=== PATIENT | female | born 2000 | race Caucasian/White ===

== ENCOUNTER 2022-04-05 11:45 | Emergency (ER) | payer BC, SELFPAY ==
[2022-04-05 11:57] VITALS: BP 147/84; PULSE 90; RESP 16; TEMP 36.8; O2SAT 98
--- NOTE | 2022-04-05 12:18 | ED.URI ---
HPI - URI/Sore Throat General Chief Complaint: Upper Respiratory Infection Stated Complaint: Sore Throat/Ear Pain Time Seen by Provider: 04/05/22 12:19 History of Present Illness HPI Narrative: patient presents with right ear pain and nasal congestion no fever no releif with sudafed and flonase Related Data Home Medications Medication Instructions Recorded Confirmed cetirizine 5 mg tablet 5 mg DAILY 04/05/22 04/05/22 norgestimate-ethinyl estradiol 1 tablet DAILY 04/05/22 04/05/22 0.18 mg/0.215mg/0.25mg-35 mcg(28)tablet Allergies Allergy/AdvReac Type Severity Reaction Status Date / Time egg Allergy Swelling Verified 04/05/22 12:02 of Lip/Tongue/Throat nut - unspecified Allergy Swelling Verified 04/05/22 12:02 of Lip/Tongue/Throat peanut Allergy Swelling Verified 04/05/22 12:02 of Lip/Tongue/Throat Review of Systems Review of Systems: CONSTITUTIONAL: Denies chills, or sweats. Reports fever and generalized body aches EYES: Denies visual changes, redness, or discharge. ENT: Denies otalgia. Reports nasal congestion runny nose and sore throat CARDIOVASCULAR: Denies chest pain, palpitations, or edema. RESPIRATORY: Denies dyspnea. Reports occasional cough GASTROINTESTINAL: Denies abdominal pain, nausea, vomiting, or diarrhea. GENITOURINARY: Denies dysuria or hematuria. SKIN: Denies rash or itching. MUSCULOSKELETAL: Denies back pain, joint pain, or myalgia. Reports generalized body aches NEUROLOGIC: Denies headache, numbness, or weakness. PSYCHIATRIC: Denies anxiety or depression. [facility] Surgical History Surgical History (Updated 02/27/22 @ 14:35 by LATOYA Sampson) Hx of oral surgery as child Family History Family History (Updated 02/27/22 @ 14:37 by LATOYA Sampson) Grandparent H/O ovarian cancer maternal grandmother Cerebrovascular accident paternal grandfather Diabetes mellitus paternal grandmother Sibling Asthma brother Social History Social History (Updated 02/27/22 @ 14:38 by LATOYA Sampson) Smoking status: Never smoker Alcohol intake: current Alcohol use details: 4 per month Substance use: never Substance use type: does not use Additional living arrangements comments: Engaged Gender identity (if verbalized by the patient): Female Sexual Orientation (if Verbalized by the Patient): Straight or Heterosexual Comments At time of signature, agree with nursing past medical, surgical, social and family history. There is no relevant family history pertinent to the presenting complaint Exam Narrative: The patient is a well-developed, well-nourished in no acute distress. SKIN: Skin is warm and dry without erythema, swelling or exudate. There is good turgor. No tenting. HEAD: Atraumatic. Normocephalic. No temporal or scalp tenderness. EYES: Moist and bright. Sclera and conjunctivae normal. No discharge. PERRLA. Extraocular motions intact. Gross visual acuity intact. EARS: Pinna is normal shape and contour. Clear external auditory canals. left TM pearly owens with good cone of light, no erythema or suppuration. Right TM opaque with moderate erythema to the canal Bilateral cerumen noted no gross hearing deficit. NOSE: pink, moist mucosa with good air movement. Clear rhinorrhea without nasal flaring. Septum midline. Mouth: moist mucous membranes. THROAT; mild erythema noted to posterior oropharynx with moderate postnasal drainage. Without exudate or ulceration.. Uvula midline. Normal movement of soft palate. NECK: Supple and nontender with full range of motion without discomfort. No meningeal signs. LUNGS: Equal and bilateral breath sounds without wheezes, rales or rhonchi. CHEST: The chest wall is without retractions or use of accessory muscles. HEART: Has a regular rate and rhythm without murmur, gallops, click or rub. ABDOMEN: Soft, nontender with positive active bowel sounds. No rebound tenderness
== END 2022-04-05 12:31 | disposition home or self-care (01) ==
PROVIDERS: Emergency Provider Nurse Practitioner Family
DX: J06.9 Acute upper respiratory infection, unspecified (principal); H66.90 Otitis media, unspecified, unspecified ear
CPT/HCPCS: 87804; 99213; G0463

== ENCOUNTER 2022-04-09 12:09 | Emergency (ER) | payer BC, SELFPAY ==
[2022-04-09 12:21] VITALS: BP 153/78; PULSE 88; RESP 16; TEMP 36.3; O2SAT 99
--- NOTE | 2022-04-09 14:51 | ED.EAR ---
HPI - Ear Problem General Chief complaint: Ear Stated complaint: Ear Problem Time Seen by Provider: 04/09/22 14:44 Source: patient, RN notes reviewed and old records reviewed Mode of arrival: ambulatory Limitations: no limitations History of Present Illness HPI Narrative: 21 year old female who presents to [facility] care with complaints of ear pain, started on Augmentin on the for bilateral ear infection does not feel she is any better. Patient reports that she continues to have bilateral ear pain which increases when she lays down, patient is also taking Sudafed for her nasal drainage. Patient denies any fevers, chills or sweats. Patient has had COVID vaccinations but has not had flu shot. MD Complaint: ear pain Location: bilateral Severity: severe Exacerbating factors: position of head (lying supine) Discharge from ear: Reports no Treatment prior to arrival: other (on antibiotic and taking Sudafed) Related Data Home Medications Medication Instructions Recorded Confirmed norgestimate-ethinyl estradiol 1 tablet DAILY 04/05/22 04/09/22 0.18 mg/0.215mg/0.25mg-35 mcg(28)tablet Allergies Allergy/AdvReac Type Severity Reaction Status Date / Time egg Allergy Swelling Verified 04/09/22 12:28 of Lip/Tongue/Throat nut - unspecified Allergy Swelling Verified 04/09/22 12:28 of Lip/Tongue/Throat peanut Allergy Swelling Verified 04/09/22 12:28 of Lip/Tongue/Throat Review of Systems Review of Systems: CONSTITUTIONAL: Denies malaise, chills, sweats, or fever. EYES: Denies visual changes, redness, or discharge. ENT: Reports rhinorrhea, congestion,no sinus pain, positive for bilateral otalgia denies sore throat. CARDIOVASCULAR: Denies chest pain, palpitations, or edema. RESPIRATORY: No reported cough.? Denies dyspnea. GASTROINTESTINAL: Denies abdominal pain, nausea, vomiting, diarrhea SKIN: Denies rash or itching. MUSCULOSKELETAL: Denies myalgia. NEUROLOGIC: Denies headache. All systems reviewed & are unremarkable except as noted in HPI and below PMFSH Surgical History Surgical History Hx of oral surgery as child Family History Family History Grandparent H/O ovarian cancer maternal grandmother Cerebrovascular accident paternal grandfather Diabetes mellitus paternal grandmother Sibling Asthma brother Social History Social History Smoking status: Never smoker Alcohol intake: current Alcohol use details: 4 per month Substance use: never Substance use type: does not use Additional living arrangements comments: Engaged Gender identity (if verbalized by the patient): Female Sexual Orientation (if Verbalized by the Patient): Straight or Heterosexual Comments At time of signature, agree with nursing past medical, surgical, social and family history. There is no relevant family history pertinent to the presenting complaint Exam Narrative: GENERAL: Well-appearing, well-nourished, and in no acute distress. HEAD: Normocephalic EYES: PERRLA, conjunctivae clear ENT: Nares clear, turbinates edematous and erythematous, clear discharge. Mucous membranes moist. TM pearly steele with mild erythema dull light reflex bilaterally;bilateral redness and irritation to ear canals with some edema, no drainage noted, no tragal tenderness. Oropharynx erythematous without lesions. Tonsils not enlarged and without exudate, no drooling, no hoarseness, no trismus, uvula midline. NECK: Supple. No lymphadenopathy CHEST: Clear to auscultation, breath sounds equal. No wheezing, rhonchi, rales, or stridor. No respiratory distress, speaks in full sentences. HEART: Regular rate and rhythm. No murmur heard. SKIN: Warm, dry, no rash. NEURO: Alert and oriented x3. PSYCH: Normal m
== END 2022-04-09 15:15 | disposition home or self-care (01) ==
PROVIDERS: Emergency Provider Registered Nurse
DX: H60.93 Unspecified otitis externa, bilateral (principal); H66.93 Otitis media, unspecified, bilateral
CPT/HCPCS: 99213; G0463

== ENCOUNTER 2022-06-24 13:53 | Emergency (ER) | payer BC, SELFPAY ==
[2022-06-24 14:02] VITALS: BP 142/88; PULSE 100; RESP 20; TEMP 36.6; O2SAT 100
--- NOTE | 2022-06-24 14:05 | ED.SKABFB ---
HPI - Skin/Abscess/Foreign Bdy General Chief complaint: Skin/Abscess/Foreign Body Stated complaint: Rash Time Seen by Provider: 06/24/22 14:17 Source: patient, RN notes reviewed and old records reviewed Mode of arrival: ambulatory Limitations: no limitations History of Present Illness HPI narrative: 21 year old female who presents to [facility] care with complaints of fine red rash to upper chest,neck and face since Thursday. Patient reports that rash is itchy and it stings, has taken some Benadryl, pepcid and Zyrtec but has not been on routine basis. Patient denies any new soap, foods, lotions, laundry products, denies any new medications. Patient states she stopped her control pills about 2 weeks ago and she called her [employer] and was told they didn't think rash could be from that.Patient reports that she just resigned from her job and her last day is doesn't think it is from stress. 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 MD complaint: rash Onset (ago): day(s) (3 of symptoms) Severity scale (1-10): 2 Treatments prior to arrival: other (Benadryl, Pepcid, and Zyrtec) Related Data Allergies Allergy/AdvReac Type Severity Reaction Status Date / Time egg Allergy Swelling Verified 04/09/22 12:28 of Lip/Tongue/Throat nut - unspecified Allergy Swelling Verified 04/09/22 12:28 of Lip/Tongue/Throat peanut Allergy Swelling Verified 04/09/22 12:28 of Lip/Tongue/Throat Review of Systems Review of Systems: CONSTITUTIONAL: Denies fever, chills, or sweats. EYES: Denies visual changes, redness, or discharge. ENT: Denies rhinorrhea, congestion, sore throat, or otalgia. CARDIOVASCULAR: Denies chest pain, palpitations, or edema. RESPIRATORY: Denies cough or dyspnea. GASTROINTESTINAL: Denies abdominal pain, nausea, vomiting, or diarrhea. GENITOURINARY: Denies dysuria or hematuria. SKIN: Reports rash with itching to upper chest neck and face states stinging sensation also. MUSCULOSKELETAL: Denies back pain, joint pain, or myalgia. NEUROLOGIC: Denies headache, numbness, or weakness. PSYCHIATRIC: Denies anxiety or depression. All systems reviewed & are unremarkable except as noted in HPI and below PMFSH Past Medical History Medical History (Updated 06/25/22 @ 09:50 by Sonia Cantrell NP) Multiple food allergies Surgical History Surgical History Hx of oral surgery as child Family History Family History Grandparent H/O ovarian cancer maternal grandmother Cerebrovascular accident paternal grandfather Diabetes mellitus paternal grandmother Sibling Asthma brother Social History Social History Smoking status: Never smoker Alcohol intake: current Alcohol use details: 4 per month Substance use: never Substance use type: does not use Living arrangements: other Additional living arrangements comments: Engaged Gender identity (if verbalized by the patient): Female Sexual Orientation (if Verbalized by the Patient): Straight or Heterosexual Comments At time of signature, agree with nursing past medical, surgical, social and family history. There is no relevant family history pertinent to the presenting complaint Exam Narrative: GENERAL: Well-appearing, well-nourished, and in no acute distress. HEAD: Normocephalic, atraumatic. EYES: PERRLA and EOMI. ENT: Nares clear, no rhinorrhea or epistaxis. Mucous membranes moist.TM's normal with good light reflex, throat pink with no lesions or swelling, denies any pain or difficulty with swallowing NECK: Supple. no lymphadenopathy CHEST: Clear to auscultation. No respiratory distress.SAO2 100% on room air, denies any dyspnea HEART: Regular rate an
== END 2022-06-24 14:47 | disposition home or self-care (01) ==
PROVIDERS: Emergency Provider Registered Nurse
DX: L25.9 Unspecified contact dermatitis, unspecified cause (principal)
CPT/HCPCS: 99213; G0463

== ENCOUNTER 2022-10-02 11:32 | Outpatient (CLI) | payer BC, SELFPAY ==
[2022-10-02 12:57] LABS: Basophils Absolute Auto 0.1 K/mm3 (0.0-0.1); Basophils Percent Auto 0.5 % (0.2-1.2); Eosinophils Absolute Auto 0.3 K/mm3 (0-0.3); Eosinophils Percent Auto 2.6 % (0-4.4); Hematocrit 41.7 % (37.0-47.0); Hemoglobin 13.8 g/dL (12.0-15.0); Immature Granulocyte Absolute 0.05 K/mm3 (0.00-0.031); Immature Granulocyte Percent A 0.5 % (0-0.5); Lymphocytes Absolute Auto 2.11 K/mm3 (0.9-3.2); Lymphocytes Percent Auto 19.9 % (18.3-44.2); Mean Corpuscular HGB Conc 33.1 g/dl (32-36); Mean Corpuscular Hemoglobin 28.8 pg (26-34); Mean Corpuscular Volume 86.9 fl (80-100); Monocytes Absolute Auto 1.1 K/mm3 (0.1-0.6); Monocytes Percent Auto 10.3 % (2.6-8.5); Neutrophils Percent Auto 66.2 % (45.5-73.1); Platelet Count Result 273 k/mm3 (150-375); Red Cell Distribution Width 13.2 % (11.5-14.5); White Blood Count 10.6 K/mm3 (4.5-10.0)
[2022-10-02 13:06] LABS: Glucose 1 Hour PP 50gm Dose 92 mg/dL
[2022-10-02 13:42] LABS: Hepatitis B Surface Antigen Negative (Negative); Rubella IgG Antibody 37.1 IU/ML
[2022-10-02 13:48] LABS: HIV 1/2 Ab P24 Ag Result Negative (Negative)
[2022-10-03 08:26] LABS: Rapid Plasma Reagin Non-Reactive (NonReactive)
[2022-10-08 12:14] LABS: CMV IgG Antibody <0.60 U/mL (<0.60)
== END 2022-10-02 11:33 | disposition home or self-care (01) ==
PROVIDERS: Visit Provider Student in an Organized Health Care Education/Training Program
DX: N94.89 Other specified conditions associated with female genital organs and menstrual cycle (principal)
CPT/HCPCS: 36415; 82947; 84702; 85025; 86592; 86644; 86703; 86747; 86762; 86787; 86850; 86900; 86901; 87086; 87340; G0432

== ENCOUNTER 2022-10-05 10:48 | Emergency (ER) | payer BC, SELFPAY ==
[2022-10-05 10:56] VITALS: PULSE 99; RESP 16; TEMP 36.2; O2SAT 100
--- NOTE | 2022-10-05 11:52 | ED.GENADULT ---
HPI - General Adult General Chief complaint: Urogenital-Female Stated complaint: Poss UTI Source: patient Mode of arrival: ambulatory Limitations: no limitations History of Present Illness HPI narrative: Patient presents for evaluation of urinary symptoms since yesterday. Symptoms include urinary urgency and hesitancy without dysuria. She is currently , approximately 10 weeks gestation. . She had an ultrasound performed on 09/15/22 and gestational age noted to be 7 weeks 1 day with FHT of 171. She reports some intermittent right lower quadrant pain for the past two days. Pain is sharp and stabbing. She notices pain more with certain movements. She denies pain at the present time. No fever, chills, nausea, vomiting, vaginal bleeding or discharge. She also has some right lower back pain. Blood tyle is O Negative. Related Data Allergies Allergy/AdvReac Type Severity Reaction Status Date / Time egg Allergy Swelling Verified 09/08/22 09:02 of Lip/Tongue/Throat nut - unspecified Allergy Swelling Verified 09/08/22 09:02 of Lip/Tongue/Throat peanut Allergy Swelling Verified 09/08/22 09:02 of Lip/Tongue/Throat Review of Systems Review of Systems: CONSTITUTIONAL: Denies fever, chills, or sweats. EYES: Denies visual changes, redness, or discharge. ENT: Denies rhinorrhea, congestion, sore throat, or otalgia. CARDIOVASCULAR: Denies chest pain, palpitations, or edema. RESPIRATORY: Denies cough or dyspnea. GASTROINTESTINAL: Reports RLQ pain. Denies nausea, vomiting, or diarrhea. GENITOURINARY: Reports urinary hesitancy and urgency. Denies dysuria, vaginal bleeding or discharge. SKIN: Denies rash or itching. MUSCULOSKELETAL: Reports right lower back pain. Denies joint pain, or myalgia. NEUROLOGIC: Denies headache, numbness, dizziness, or weakness. PSYCHIATRIC: Denies anxiety or depression. [facility] Past Medical History Medical History Multiple food allergies Suppression of menses Surgical History Surgical History Hx of oral surgery as child Family History Family History Grandparent H/O ovarian cancer maternal grandmother Cerebrovascular accident paternal grandfather Diabetes mellitus paternal grandmother Sibling Asthma brother Social History Social History Smoking status: Never smoker Alcohol intake: current Alcohol use details: 4 per month Substance use: never Substance use type: does not use Living arrangements: other Additional living arrangements comments: Engaged Gender identity (if verbalized by the patient): Female Sexual Orientation (if Verbalized by the Patient): Straight or Heterosexual Exam Narrative: GENERAL: Well-appearing, well-nourished, and in no acute distress. HEAD: Normocephalic, atraumatic. EYES: PERRLA and EOMI. ENT: Nares clear, no rhinorrhea or epistaxis. Mucous membranes moist. Oropharynx without tonsillar hypertrophy exudate or other lesions. Bilateral TMs pearly steele nonbulging NECK: Supple. No adenopathy or masses. No carotid bruits or JVD CHEST: Clear to auscultation. No respiratory distress. No wheezes rales or rhonchi HEART: Regular rate and rhythm. No murmur heard. Normal peripheral pulses. ABDOMEN: Soft, nondistended, normal active bowel sounds. Tenderness in RLQ without rebound or guarding. BACK: Right sided CVA tenderness present. EXTREMITIES: Normal range of motion. No edema. SKIN: Warm, dry, no rash. NEURO: No focal deficits. Alert and oriented x3. PSYCH: Normal mood and affect. Course Course Emergency Course: This is a 22-year-old female who presented for evaluation of right lower quadrant pain with associated urinary symptoms. Clinical
[2022-10-05 12:45] VITALS: BP 136/92
== END 2022-10-05 12:15 | disposition short-term general hospital (02) ==
PROVIDERS: Emergency Provider Nurse Practitioner
DX: O26.891 Other specified pregnancy related conditions, first trimester (principal); Z3A.10 10 weeks gestation of pregnancy; R10.31 Right lower quadrant pain; O99.891 Other specified diseases and conditions complicating pregnancy; R31.29 Other microscopic hematuria
CPT/HCPCS: 81003; 87086; 99213; G0463

== ENCOUNTER 2022-10-05 12:52 | Emergency (ER) | payer BC, SELFPAY ==
--- NOTE | ~2022-10-05 | US_ITS ---
EXAMINATION: US renal BI DATE: 10/05/2022 13:49 INDICATION: Microscopic hematuria TECHNIQUE: Multiple grayscale and Doppler ultrasound images of the kidneys were obtained. COMPARISON: None. FINDINGS: The right kidney measures 10.5 x 3.7 x 5.5 cm. The left kidney measures 10.2 x 5.2 x 5.1 cm . The kidneys demonstrate normal parenchymal echogenicity. There is no hydronephrosis. The bladder is incompletely distended but unremarkable in appearance. IMPRESSION: 1. Normal kidneys without hydronephrosis. Reviewed, dictated and finalized at location A.
[2022-10-05 13:03] VITALS: BP 139/81; PULSE 102; RESP 19; TEMP 36.6; O2SAT 99
--- NOTE | 2022-10-05 13:29 | ED.GENADULT ---
HPI - General Adult General Chief complaint: Urogenital-Female Stated complaint: blood in urine, Time Seen by Provider: 10/05/22 13:05 History of Present Illness HPI narrative: 22-year-old female that is approximately 2 and weeks , G2, P0 presented to the emergency department for evaluation of some right lower quadrant pain for the past 2 days. At urgent care patient did have a UA that did show some blood in the urine but no evidence of urinary tract infection. Patient does follow-up with Dr. Owen and in consultation with OB they recommended the patient present to the emergency department for a bladder and renal ultrasound to evaluate for kidney stone. They recommended that if the patient did not have any evidence of a stone they recommended amoxicillin for the underlying urinary tract infection. Related Data Allergies Allergy/AdvReac Type Severity Reaction Status Date / Time egg Allergy Swelling Verified 09/08/22 09:02 of Lip/Tongue/Throat nut - unspecified Allergy Swelling Verified 09/08/22 09:02 of Lip/Tongue/Throat peanut Allergy Swelling Verified 09/08/22 09:02 of Lip/Tongue/Throat Review of Systems Review of Systems: All systems reviewed & are unremarkable except as noted in HPI and below PMFSH Past Medical History Medical History Multiple food allergies Suppression of menses Surgical History Surgical History Hx of oral surgery as child Family History Family History Grandparent H/O ovarian cancer maternal grandmother Cerebrovascular accident paternal grandfather Diabetes mellitus paternal grandmother Sibling Asthma brother Social History Social History Smoking status: Never smoker Alcohol intake: current Alcohol use details: 4 per month Substance use: never Substance use type: does not use Living arrangements: other Additional living arrangements comments: Engaged Gender identity (if verbalized by the patient): Female Sexual Orientation (if Verbalized by the Patient): Straight or Heterosexual Exam Narrative: APPEARANCE: Well appearing, no pain, no distress, well-nourished. HEAD: normocephalic, atraumatic. EYES: PERRLA/EOMI, conjunctivae clear. NOSE: Normal no drainage NECK: Supple. No adenopathy, no masses. RESPIRATORY: Airway patent, respirations nonlabored. Clear to auscultation bilaterally, no rales, rhonchi, wheezing. CARDIOVASCULAR: Regular rate and rhythm without murmurs rubs or gallops. ABDOMINAL: Soft, mild right lower quadrant tenderness to palpation MUSCULOSKELETAL: Moves all extremities. Strength/ROM intact, No edema, No calf tenderness. NEURO: Alert. Cranial nerves II through XII intact. Grossly intact SKIN: Warm, dry. Normal Color Course Course Emergency Course: 22-year-old female for evaluation of right lower quadrant pain. Ultrasound showed no evidence of hydronephrosis. Patient was started on amoxicillin for possible UTI. Patient and family were updated the results of the imaging and plan for antibiotic treatment. Patient does have close follow-up with [facility] [employer] tomorrow. Patient is afebrile and had a minor leukocytosis. Patient has no peritonitis. Low clinical concern for appendicitis. Patient did have some urinary symptoms Vital Signs Vital signs: Vital Signs Temperature 97.9 F 10/05/22 13:03 Pulse Rate 102 H 10/05/22 13:03 Respiratory Rate 10/05/22 13:03 Blood Pressure 139/81 10/05/22 13:03 Pulse Oximetry 99 10/05/22 13:03 Oxygen Delivery Room Air 10/05/22 13:03 Temperature 97.9 F 10/05/22 13:03 Pulse Rate 102 H 10/05/22 13:03 Respiratory Rate 19 10/05/22 13:03 Blood Pressure 147/94 H 10/05/22 14:39
[2022-10-05] MEDS: AMOXICILLIN 500 MG CAPSULE PO (14:34)
[2022-10-05 14:39] VITALS: BP 147/94
== END 2022-10-05 14:40 | disposition home or self-care (01) ==
PROVIDERS: Emergency Provider Emergency Medicine
DX: O26.891 Other specified pregnancy related conditions, first trimester (principal); R10.31 Right lower quadrant pain; R39.15 Urgency of urination; Z3A.10 10 weeks gestation of pregnancy
CPT/HCPCS: 76775; 99284; A9270

== ENCOUNTER 2023-01-20 20:12 | Observation (INO) | payer BC, SELFPAY ==
[2023-01-20 20:33] VITALS: BMI 45.8
--- NOTE | 2023-01-20 20:34 | OBADM ---
This patient, Edita Jesus, admitted to the OB room [facility] for observation. Patient/family oriented to hospital policies and general routines including ID bracelet, bed and alarms, visiting hours, pain management, procedures, bathroom and other care routines, personal items, smoking policy, room service/diet, and visiting hours. Patient/Family are encouraged to report perceived risks to care and to ask questions if they do not understand what they are told or what they should do.
[2023-01-20 21:02] VITALS: BP 114/72; PULSE 96
--- NOTE | 2023-01-21 09:09 | PM.OBTRLD ---
OB - Triage/Final Diagnosis Visit Information Reason for evaluation: other ( vaginal bleeding) Comments/Additional reasons for admission: I have assessed the risk for this patient, Edita Jesus, and determined that she would benefit from observation care. Evaluation Vital signs: Vital Signs - 24 hr 01/20/23 21:02 Pulse Rate 96 Blood Pressure 114/72
== END 2023-01-20 21:31 | disposition home or self-care (01) ==
PROVIDERS: Admitting Provider Obstetrics & Gynecology; Visit Provider Obstetrics & Gynecology
DX: O46.92 Antepartum hemorrhage, unspecified, second trimester (principal); Z3A.25 25 weeks gestation of pregnancy
CPT/HCPCS: G0378; G0379

== ENCOUNTER 2023-01-22 16:09 | Outpatient (CLI) | payer BC, SELFPAY ==
--- NOTE | ~2023-01-22 | US_ITS ---
EXAMINATION: US OB limited DATE: 01/22/2023 17:02 INDICATION: Antepartum hemorrhage. Estimated gestational age of 25 weeks and 4 days. TECHNIQUE: Real-time ultrasound of the pelvis was performed. COMPARISON: Ultrasound 10/06/2022 FINDINGS: There is a single fetus in vertex presentation on transabdominal images. The placenta is anterior, g reater than 7 cm from the cervix. heart rate is 155 beats per minute (bpm). The amniotic fluid index is 10.3 cm, which is normal. Cervical length is 3.0 cm on transvaginal images, which is normal. IMPRESSION: 1. Single living fetus in vertex presentation. Reviewed, dictated and finalized at location E.
== END 2023-01-22 16:10 | disposition home or self-care (01) ==
LOC: ANHIMG 16:16
PROVIDERS: Visit Provider Obstetrics & Gynecology
DX: O46.90 Antepartum hemorrhage, unspecified, unspecified trimester (principal); Z3A.00 Weeks of gestation of pregnancy not specified
CPT/HCPCS: 76815

== ENCOUNTER 2023-02-07 04:15 | Observation (INO) | payer BC, SELFPAY ==
[2023-02-07] VITALS (15 sets, daily range): BP systolic 120–140; BP diastolic 71–89; PULSE 92–107; O2SAT 97–100; BMI 40.4
[2023-02-07 05:07] LABS: Appearance Urine Cloudy (Clear); Bacteria Urine 4+ /hpf; Bilirubin Urine Negative (Negative); Blood Urine 2+ (Negative); Color Urine Yellow (Yellow); Glucose Urine UA Negative (Negative); Ketones Urine 1+ mg/dL (Negative); Leukocyte Esterase Ur 1+ LEU/UL (Negative); Need Manual Microscopic Reviewed; Nitrate Urine Negative (Negative); Protein Urine Negative (Negative); RBC Urine 21-50 /hpf (0-2); Specific Grav Ur 1.026 (1.001-1.035); Squamous Epithelial Cell Urine Few /hpf (Few); Urobilinogen Urine 0.2 mg/dL (<2.0); WBC Urine 21-50 /hpf; pH Urine 5.5 (5.0-9.0)
[2023-02-07 05:33] LABS: Add Urine Microscopic? YES
--- NOTE | 2023-02-07 07:48 | PM.OBTRLD ---
OB - Triage/Final Diagnosis Visit Information Reason for evaluation: other (Back pain) Comments/Additional reasons for admission: I have assessed the risk for this patient, Edita Jesus, and determined that she would benefit from observation care. Evaluation Laboratory results: Laboratory Tests 02/07/23 04:36 Urine Color Yellow Urine Appearance Cloudy H Urine pH 5.5 Ur Specific [place] 1.026 Urine Protein Negative Urine Glucose (UA) Negative Urine Ketones 1+ H Ur Blood (Man) 2+ H Urine Nitrate Negative Urine Bilirubin Negative Urine Urobilinogen 0.2 Add Ur Microanalysis Reviewed Leukocyte Esterase Rfl 1+ H Urine RBC 21-50 H Urine WBC 21-50 H Ur Squamous Epith Cells Few Urine Bacteria 4+ H Urine Casts 3-5 Vital signs: Vital Signs - 24 hr 02/07/23 04:40 02/07/23 04:42 02/07/23 04:45 Pulse Rate 93 95 Blood Pressure 120/80 132/71 Pulse Oximetry 99 99 Oxygen Delivery 02/07/23 04:50 02/07/23 04:55 02/07/23 05:00 Pulse Rate 98 Blood Pressure 139/89 Pulse Oximetry 100 100 100 Oxygen Delivery 02/07/23 05:05 02/07/23 05:10 02/07/23 05:15 Pulse Rate Blood Pressure Pulse Oximetry 100 100 98 Oxygen Delivery 02/07/23 05:16 02/07/23 05:20 02/07/23 05:25 Pulse Rate 97 Blood Pressure 136/83 Pulse Oximetry 97 99 Oxygen Delivery 02/07/23 05:30 02/07/23 05:31 02/07/23 05:35 Pulse Rate 103 H Blood Pressure 140/79 Pulse Oximetry 100 99 Oxygen Delivery 02/07/23 05:07 Pulse Rate Blood Pressure Pulse Oximetry Oxygen Delivery Room Air Comments: NST reactive per RN. No xtx, bleeding, or loss of fluid. + movement. UA concerning for dehydration and possible UTI. Send for culture. Reported previous UTI this . Increase PO hydration. Rx Macrobid 100mg BID x 5 days. f/up in office this week.
== END 2023-02-07 05:44 | disposition home or self-care (01) ==
LOC: ANHOBPP 05:35 → ANHOBOP 02-09 10:58 → ANHLDR 02-09 11:32
PROVIDERS: Admitting Provider Advanced Practice Midwife; Visit Provider Advanced Practice Midwife
DX: O99.891 Other specified diseases and conditions complicating pregnancy (principal); M54.9 Dorsalgia, unspecified
CPT/HCPCS: 59025; 81001; 87086; 99199; G0378; G0379

== ENCOUNTER 2023-02-11 10:53 | Outpatient (RCR) | payer BC, SELFPAY ==
[2023-02-11 12:28] LABS: Basophils Percent Auto 0.2 % (0.2-1.2); Eosinophils Absolute Auto 0.2 K/mm3 (0-0.3); Eosinophils Percent Auto 1.3 % (0-4.4); Hematocrit 36.2 % (37.0-47.0); Hemoglobin 12.2 g/dL (12.0-15.0); Immature Granulocyte Absolute 0.11 K/mm3 (0.00-0.031); Immature Granulocyte Percent A 0.9 % (0-0.5); Lymphocytes Absolute Auto 1.81 K/mm3 (0.9-3.2); Lymphocytes Percent Auto 14.4 % (18.3-44.2); Mean Corpuscular HGB Conc 33.7 g/dl (32-36); Mean Corpuscular Hemoglobin 29.8 pg (26-34); Mean Corpuscular Volume 88.3 fl (80-100); Mean Platelet Volume 10.6 fl (7.4-10.4); Monocytes Absolute Auto 0.9 K/mm3 (0.1-0.6); Monocytes Percent Auto 7.5 % (2.6-8.5); Neutrophils Absolute Auto 9.5 K/mm3 (1.3-6.7); Neutrophils Percent Auto 75.7 % (45.5-73.1); Platelet Count Result 238 k/mm3 (150-375); Red Cell Distribution Width 13.2 % (11.5-14.5); White Blood Count 12.6 K/mm3 (4.5-10.0)
[2023-02-11 12:46] LABS: Glucose 1 Hour PP 50gm Dose 127 mg/dL
[2023-02-11 13:18] LABS: HIV 1/2 Ab P24 Ag Result Negative (Negative)
[2023-02-12] MEDS: RHO(D) IMMUNE GLOBULIN 300 MCG/2 ML SYRINGE IM (11:44)
== END 2023-05-12 23:59 | disposition home or self-care (01) ==
LOC: ANHLAB 10:53
PROVIDERS: Visit Provider Obstetrics & Gynecology
DX: Z11.4 Encounter for screening for human immunodeficiency virus [HIV] (principal); Z29.13 Encounter for prophylactic Rho(D) immune globulin; O36.0190 Maternal care for anti-D [Rh] antibodies, unspecified trimester, not applicable or unspecified; Z3A.00 Weeks of gestation of pregnancy not specified
CPT/HCPCS: 36415; 82947; 85025; 85461; 86703; 86850; 86900; 86901; 90384; 96372; G0432; J2790

== ENCOUNTER 2023-03-27 11:52 | Outpatient (RCR) | payer BC, SELFPAY ==
[2023-03-27 13:20] VITALS: BP 120/69; PULSE 108
== END 2023-06-25 23:59 | disposition home or self-care (01) ==
LOC: ANHOBOP 11:52
PROVIDERS: Visit Provider Obstetrics & Gynecology
DX: O36.8130 Decreased fetal movements, third trimester, not applicable or unspecified (principal); Z3A.34 34 weeks gestation of pregnancy
CPT/HCPCS: 59025

== ENCOUNTER 2023-04-05 01:28 | Outpatient (CLI) | payer BC, SELFPAY | END 2023-04-05 01:29 | disposition home or self-care (01) | PROVIDERS: Visit Provider Obstetrics & Gynecology | DX: Z34.90 Encounter for supervision of normal pregnancy, unspecified, unspecified trimester (principal); Z3A.00 Weeks of gestation of pregnancy not specified | CPT/HCPCS: 59025; 84112 ==

== ENCOUNTER 2023-04-26 16:46 | Inpatient (IN) | payer BC, SELFPAY ==
[2023-04-26] VITALS (15 sets, daily range): BP systolic 124–154; BP diastolic 75–94; PULSE 86–105; TEMP 36.6; BMI 45.3
--- NOTE | 2023-04-26 17:05 | LDADM ---
This patient, Edita Jesus, was admitted to Labor/Delivery/Recovery 105 on 04/26/23 at 16:46. Plans for labor, pain management and were discussed with patient. Patient/family oriented to hospital policies and general routines including ID bracelet, bed and alarms, visiting hours, pain management, procedures, bathroom and other care routines, personal items, smoking policy, room service/diet and guest tray routines, security routines, and visiting hours. Patient/Family are encouraged to report perceived risks to care and to ask questions if they do not understand what they are told or what they should do. See [facility] for further documentation.
[2023-04-26 17:21] LABS: Basophils Percent Auto 0.3 % (0.2-1.2); Eosinophils Absolute Auto 0.1 K/mm3 (0-0.3); Eosinophils Percent Auto 0.9 % (0-4.4); Immature Granulocyte Absolute 0.08 K/mm3 (0.00-0.031); Immature Granulocyte Percent A 0.7 % (0-0.5); Lymphocytes Absolute Auto 1.98 K/mm3 (0.9-3.2); Lymphocytes Percent Auto 16.6 % (18.3-44.2); Mean Corpuscular HGB Conc 33.3 g/dl (32-36); Mean Corpuscular Hemoglobin 29.5 pg (26-34); Mean Corpuscular Volume 88.4 fl (80-100); Mean Platelet Volume 11.4 fl (7.4-10.4); Monocytes Absolute Auto 1.2 K/mm3 (0.1-0.6); Monocytes Percent Auto 9.9 % (2.6-8.5); Neutrophils Absolute Auto 8.6 K/mm3 (1.3-6.7); Neutrophils Percent Auto 71.6 % (45.5-73.1); Platelet Count Result 203 k/mm3 (150-375); Red Blood Count 4.41 M/mm3 (4.2-5.4); Red Cell Distribution Width 14.2 % (11.5-14.5)
[2023-04-26] MEDS: DINOPROSTONE 10 MG VAG INSERT VAGINAL (17:30)
--- NOTE | 2023-04-26 19:03 | WPDANESEPP ---
Anes - Eval Pre Procedure Procedure: labor epidural Date/Time: 04/26/23 19:03 Pre Op Diagnosis: Induction of Labor Patient Data Age: 22 Gender: F Height: 1.63 m Weight: 120 kg Last Vital Signs Pulse 88 04/26/23 19:01 BP 130/77 04/26/23 19:01 O2 Del Method Room Air 04/26/23 17:04 Allergies Allergy/AdvReac Type Severity Reaction Status Date / Time egg Allergy Severe Swelling Verified 04/26/23 17:06 of Lip/Tongue/Throat nut - unspecified Allergy Severe Swelling Verified 04/26/23 17:06 of Lip/Tongue/Throat peanut Allergy Severe Swelling Verified 04/26/23 17:06 of Lip/Tongue/Throat Home Medications Medication Instructions Recorded Confirmed Type [id number] 400 mcg-om3 35 mg-dha 25 1 tablet PO DAILY 11/03/22 04/26/23 History mg-epa 5 mg-fish oil chewable tablet aspirin 81 mg tablet,delayed 81 mg PO DAILY 03/27/23 04/26/23 History release cetirizine 10 mg tablet (Zyrtec) 10 mg PO DAILY 03/27/23 04/26/23 History ondansetron 4 mg disintegrating 4 mg PO Q6H PRN nausea and 03/27/23 04/26/23 Rx tablet vomiting #30 tabs Laboratory Tests 04/26/23 17:02 WBC 12.0 H K/mm3 (4.5-10.0) RBC 4.41 M/mm3 (4.2-5.4) Hgb 13.0 g/dL (12.0-15.0) Hct 39.0 % (37.0-47.0) MCV 88.4 fl (80-100) MCH 29.5 pg (26-34) MCHC 33.3 g/dl (32-36) RDW 14.2 % (11.5-14.5) Plt Count 203 k/mm3 (150-375) MPV 11.4 H fl (7.4-10.4) Immature Gran % (Auto) 0.7 H % (0-0.5) Neut % (Auto) 71.6 % (45.5-73.1) Lymph % (Auto) 16.6 L % (18.3-44.2) [place] % (Auto) 9.9 H % (2.6-8.5) Eos % (Auto) 0.9 % (0-4.4) Baso % (Auto) 0.3 % (0.2-1.2) Lymph # (Auto) 1.98 K/mm3 (0.9-3.2) [place] # (Auto) 1.2 H K/mm3 (0.1-0.6) Eos # (Auto) 0.1 K/mm3 (0-0.3) Baso # (Auto) 0.0 K/mm3 (0.0-0.1) Abs Immat Gran (auto) 0.08 H K/mm3 (0.00-0.031) Absolute Neuts (auto) 8.6 H K/mm3 (1.3-6.7) Absolute Nucleated RBC 0.0 K/mm3 (0.0-0.012) Nucleated RBC % 0.0 % (0.0-0.2) RPR Pending Blood Type O Negative Antibody Screen Negative Patient hx anesthesia problems: none Family hx anesthesia problems: none Results Review: All pre-operative results and documents have been reviewed as part of the pre-operative evaluation. [facility] [place] Past Medical History Medical History (Updated 04/26/23 @ 19:04 by Evelyn Bourne CRNA) Morbid obesity Multiple food allergies Suppression of menses Surgical History Surgical History Hx of oral surgery as child Family History Family History Grandparent H/O ovarian cancer maternal grandmother Cerebrovascular accident paternal grandfather Diabetes mellitus paternal grandmother Sibling Asthma brother Social History Social History Smoking status: Never smoker Alcohol intake: current Alcohol use details: 4 per month Substance use: never Substance use type: does not use Lack of Transportation: No Lack of Food: Never True Current Housing: I Have Housing Concerned About Future Housing: No Difficulty Paying Gas/Electric Bills: No Difficulty Paying for Meds: No Currently Unemployed: No Education: Bachelor's Degree Difficulty w/ Childcare or Family Care: No Living arrangements: other Additional living arrangements comments: Engaged Occupation/Education: unemployed Gender identity (if verbalized by the patient): Female Sexual Orientation (if Verbalized by the Patient): Straight or Heterosexual Spiritual care concerns: No Exam Day of Procedure 04/26/23 19:03 Patient weight: morbidly obese Heart: regular rate and rhythm Lungs: normal air movement Airway: Mallampati scale Neurological: alert and
[2023-04-26 19:32] LABS: Alanine Aminotransferase 45 U/L (6-35); Albumin Level 3.6 g/dL (3.5-5.1); Alkaline Phosphatase 168 U/L (38-126); Anion Gap 6 mmol/L (8-16); Aspartate Amino Transferase 39 U/L (14-36); Bilirubin,Total 0.6 mg/dL (0.2-1.3); Blood Urea Nitrogen 4 mg/dL (7-17); Calcium 9.8 mg/dL (8.4-10.2); Carbon Dioxide 21 mmol/L (22-30); Chloride 107 mmol/L (98-107); Estimated CRCL calculation 186 ml/min; Estimated Glomerular Filt Rate > 60; Glucose 97 mg/dL (65-110); Potassium 3.7 mmol/L (3.4-5.0); Sodium 134 mmol/L (137-145)
[2023-04-26 19:57] LABS: Total Protein Urine Random 23 mg/dL; Ur Ttl Prot Creatinine Ratio 0.26 mg/mg (0-0.20)
--- NOTE | 2023-04-26 20:09 | PM.IMHP ---
H&P: HPI History of Present Illness Date/Time: 04/26/23 20:09 Chief Complaint: eletive IOL Narrative: Edita is a 22yo @ 39.0wks who presented for elective IOL. She has had regular care. She reports good movement. Irregular contractions. No vb or LOF. On arrival to L&D, has noted to have elevated blood pressures; asymptomatic and PEC w/u negative Her is complicated by: - obesity- pre-preg BMI 44. recommend ASA daily - RH negative s/p rhogan at 28 weeks - Getational HTN Review of Systems Constitutional: Constitutional: Denies chills, Denies fever(s) and Denies headache(s) Eyes: Eyes: Denies change in vision ENT: Denies headache(s) Cardiovascular: Cardiovascular: Denies chest pain and Denies dyspnea Respiratory: Respiratory: Denies dyspnea Genitourinary: Genitourinary: Denies abnormal vaginal bleeding and Denies vaginal discharge Neurologic: Denies headache(s) Psychiatric: Psychiatric: Denies anxiety and Denies depression [facility] Past Medical History Medical History (Updated 04/26/23 @ 20:18 by Jerri Samson MD) Morbid obesity Multiple food allergies Suppression of menses Surgical History Surgical History Hx of oral surgery as child Family History Family History Grandparent H/O ovarian cancer maternal grandmother Cerebrovascular accident paternal grandfather Diabetes mellitus paternal grandmother Sibling Asthma brother Social History Social History Smoking status: Never smoker Alcohol intake: current Alcohol use details: 4 per month Substance use: never Substance use type: does not use Lack of Transportation: No Lack of Food: Never True Current Housing: I Have Housing Concerned About Future Housing: No Difficulty Paying Gas/Electric Bills: No Difficulty Paying for Meds: No Currently Unemployed: No Education: Bachelor's Degree Difficulty w/ Childcare or Family Care: No Living arrangements: other Additional living arrangements comments: Engaged Occupation/Education: unemployed Gender identity (if verbalized by the patient): Female Sexual Orientation (if Verbalized by the Patient): Straight or Heterosexual Spiritual care concerns: No Meds Home Medications and Allergies Home Medications Medication Instructions Recorded Confirmed Type [id number] 400 mcg-om3 35 mg-dha 25 1 tablet PO DAILY 11/03/22 04/26/23 History mg-epa 5 mg-fish oil chewable tablet aspirin 81 mg tablet,delayed 81 mg PO DAILY 03/27/23 04/26/23 History release cetirizine 10 mg tablet (Zyrtec) 10 mg PO DAILY 03/27/23 04/26/23 History ondansetron 4 mg disintegrating 4 mg PO Q6H PRN nausea and 03/27/23 04/26/23 Rx tablet vomiting #30 tabs Allergies Allergy/AdvReac Type Severity Reaction Status Date / Time egg Allergy Severe Swelling Verified 04/26/23 17:06 of Lip/Tongue/Throat nut - unspecified Allergy Severe Swelling Verified 04/26/23 17:06 of Lip/Tongue/Throat peanut Allergy Severe Swelling Verified 04/26/23 17:06 of Lip/Tongue/Throat Vital Signs Vital Signs - 24 hr 04/26/23 17:04 04/26/23 17:16 04/26/23 17:31 Pulse Rate 101 H 100 Blood Pressure 141/80 H 130/82 Oxygen Delivery Room Air 04/26/23 17:46 04/26/23 18:01 04/26/23 18:16 Pulse Rate 105 H 101 H 92 Blood Pressure 124/85 143/81 H 154/94 H Oxygen Delivery 04/26/23 18:31 04/26/23 18:46 04/26/23 19:01 Pulse Rate 94 93 88 Blood Pressure 142/87 H 147/85 H 130/77 Oxygen Delivery 04/26/23 19:16 04/26/23 19:31 04/26/23 19:46 Pulse Rate 89 88 90 Blood Pressure 135/85 134/90 139/75 Oxygen Delivery 04/26/23 20:01 Pulse Rate 91 Blood Pressure 135/78 Oxygen Delivery Exam Const: General: coope
[2023-04-26] MEDS: fentaNYL CITRATE INJ (*CRX) 100 MCG/2 ML VIAL 50 MCG IV PUSH (23:45)
[2023-04-27] VITALS (267 sets, daily range): BP systolic 70–161; BP diastolic 37–112; PULSE 78–159; RESP 14–18; TEMP 36–37; O2SAT 95–100
[2023-04-27] MEDS: fentaNYL CITRATE INJ (*CRX) 100 MCG/2 ML VIAL 50 MCG IV PUSH (01:31)
[2023-04-27] MEDS: ONDANSETRON INJ 4 MG/2 ML VIAL IV PUSH ×2 (05:58→14:54)
[2023-04-27] MEDS: LACTATED RINGERS 1,000 ML 125 ML IV CONT ×3 (07:27→17:08)
[2023-04-27] MEDS: OXYTOCIN 30 UNITS/NS 500 ML 30 UNITS/500 ML BAG IV CONT (07:27)
--- NOTE | 2023-04-27 08:59 | WPDHPUPDATE1 ---
History and Physical Update Update Date/Time: 04/27/23 08:59 History and Physical has been reviewed, including an updated exam of the patient. There are NO changes in the patient's condition. Risks, benefits, and alternatives have been discussed and questions answered. Patient agrees to proceed with procedure.
--- NOTE | 2023-04-27 14:47 | PM.OBPNLAB ---
Pain Control Date/time seen: 04/27/23 14:47 Pain control: epidural Pelvic Exam Dilation (cm): 6 Effacement (%): 80 station: -2 Amniotic membrane status: Ruptured (AROM, clear 1437) Contractions Monitor mode: Internal Contraction frequency: 2 (-3) Contraction pattern: Regular Contraction intensity: Strong/Firm Status status: Category l Assessment and Plan Pitocin rate (mU/min): 12 Assessment: active labor Plan: continuous present management
[2023-04-27] MEDS: ACETAMINOPHEN 500 MG TABLET 1000 MG PO (17:36)
[2023-04-27] MEDS: LORATADINE 10 MG TABLET PO (18:45)
--- NOTE | 2023-04-27 20:20 | PM.OBPNLAB ---
Pain Control Date/time seen: 04/27/23 20:20 Pain control: epidural Pelvic Exam Dilation (cm): 6 Effacement (%): 80 station: -2 Amniotic membrane status: Ruptured (AROM, clear 1437) Contractions Monitor mode: Internal Contraction frequency: 2 (-3) Contraction pattern: Regular Contraction intensity: Strong/Firm Status status: Category l Assessment and Plan Pitocin rate (mU/min): 14 Plan: Comments: - Pt has remained 6cm, while being ruptured, on pitocin, with IUPC in place (adequate contractions for >4 hours) - Proceed with primary due to arrest of active phase. Risks and benefits discussed in detail - Ancef 3g + azithromycin
[2023-04-27] MEDS: AZITHROMYCIN 500 MG/NS 250 ML 500 MG/250 ML BAG 250 MG IVPB (20:38)
[2023-04-27] MEDS: ceFAZolin 3 GM/D5W 100 ML 100 ML IVPB (20:47)
--- NOTE | 2023-04-27 21:40 | W.PM.OBCSD ---
OB - Delivery Note Procedure Delivery date: 04/27/23 Pre-op diagnosis: Arrest of Dilation and Gestational Hypertension Post-op Diagnosis: Same Induction method: Per Cervidil Protocol and Other (cook balloon) Delivery augmentation: Rupture of Membranes and Pitocin Delivery monitor: External FHT and Internal Uterine Prior to decision for section, [facility] labor guidelines were considered and discussed with the patient and staff. Decision made to proceed with the section.: Yes Procedure Performed: Primary Primary branch: low cervical, transverse Surgeon: Jerri Samson MD Anesthesia type: Epidural Description of Procedure/Findings: Thin, ballooned out lower uterine segment. Fetus, asynclitic, mostly ROP. Clear fluid. Unable to visualize left adnexa as there was scar tissue from the colon to the uterus, normal right adnexa. Good hemostasis at end of case. Specimen: Yes Estimated Blood Loss: 390 Urine Output: 925 Pathology: Yes (placenta) Complications: No immediate complications Condition: Stable Disposition: Floor Baby Date of : 04/27/23 Time of : 20:59 Weeks of gestation at delivery: 39 (.1) gender: Female Weight (pounds): 7 Weight (ounces): 7 presentation: vertex position: Right Occiput Posterior Placenta delivery description: Expressed Cord Vessel Description: 3 Vessels and Delayed Cord Clamping score one minute: 8 score five minutes: 8 Narrative: She was counseled on all risks and benefits in detail. She was taken to the operating room where epidural was found to be adequate. She was then prepped and draped in the normal sterile fashion. She received 3g Ancef and 500mg Azithromycin and a time out was performed. A Pfannenstiel incision was made in the skin and carried down to the underlying fascia. The fascia was nicked on either side of the midline and the fascial incision was extended laterally and superiorly using curved Jaime scissors. The fascia was then elevated using Lena clamps and the underlying rectus muscles were dissected off the fascia, superiorly and inferiorly. The rectus muscles were then in the midline and the peritoneum was entered bluntly. Once adequate exposure was obtained, a Mobius self retractor was placed within the abdomen. A bladder flap was created. A low transverse incision was made on the lower uterine segment and clear fluid was noted. The occiput was easily brought to the hysterotomy and the head was delivered. The shoulders and body then followed without complications. The had spontaneous cry and the mouth and nose were bulb suctioned. The cord clamping was delayed but then doubly clamped and cut and the infant was handed off to the awaiting pediatric nurse. A segment of the cord was collected for cord gases. The remaining cord blood was collected for typing. With pitocin infusing, the placenta delivered with gentle traction on the cord without complications. The uterus was then cleared out of all clots and debris using a clean, moist lap. The hysterotomy was then repaired in a running, interlocking fashion using 0 Vicryl. A second layer imbricating suture was then made using 0 Vicryl. The hysterotomy was found to be hemostatic and good uterine tone was noted. The bilateral adnexa with the above findings. The pelvis was cleared of all clots and fluid. The Mobius retractor was removed from the abdomen. The peritoneum, muscle, and fascia were examined and made hemostatic with bovie cautery. The fascia was then repaired using a 0 Vicryl suture in a running fashion. The subcutaneous tissue was then irrigated and made hemostatic with bovie cautery. The subcutaneous tissue was then reapproximated using 2-0 Vicryl. The skin was then closed using 4-0 Monocryl in a running subcuticular fashion. Sponge, lap, needle and instrument counts were correct at the end of the procedure x2. The patient tolera
[2023-04-28] MEDS: ACETAMINOPHEN 500 MG TABLET 1000 MG
[2023-04-28] MEDS: OXYTOCIN 30 UNITS/NS 500 ML 30 UNITS/500 ML BAG 125 UNITS (00:10)
[2023-04-28 00:49] VITALS: BP 122/79; PULSE 103; RESP 18; TEMP 36.4; O2SAT 95
[2023-04-28] MEDS: HYDROcodone/acetaminophen (*CRX) 5-325 MG TABLET 1 TAB PO ×3 (01:11→11:21)
[2023-04-28] MEDS: KETOROLAC 30 MG/ML VIAL (*BKC) IV PUSH ×2 (01:11→08:10)
[2023-04-28 04:38] LABS: Basophils Absolute Auto 0.1 K/mm3 (0.0-0.1); Basophils Percent Auto 0.3 % (0.2-1.2); Eosinophils Percent Auto 0.1 % (0-4.4); Hematocrit 32.9 % (37.0-47.0); Hemoglobin 10.9 g/dL (12.0-15.0); Immature Granulocyte Absolute 0.08 K/mm3 (0.00-0.031); Immature Granulocyte Percent A 0.5 % (0-0.5); Lymphocytes Absolute Auto 1.68 K/mm3 (0.9-3.2); Lymphocytes Percent Auto 9.6 % (18.3-44.2); Mean Corpuscular HGB Conc 33.1 g/dl (32-36); Mean Corpuscular Hemoglobin 30.2 pg (26-34); Mean Corpuscular Volume 91.1 fl (80-100); Mean Platelet Volume 11.4 fl (7.4-10.4); Monocytes Absolute Auto 1.8 K/mm3 (0.1-0.6); Monocytes Percent Auto 10.4 % (2.6-8.5); Neutrophils Absolute Auto 13.8 K/mm3 (1.3-6.7); Neutrophils Percent Auto 79.1 % (45.5-73.1); Platelet Count Result 169 k/mm3 (150-375); Red Blood Count 3.61 M/mm3 (4.2-5.4); Red Cell Distribution Width 14.2 % (11.5-14.5); White Blood Count 17.4 K/mm3 (4.5-10.0)
[2023-04-28 04:44] VITALS: BP 128/68; PULSE 92; RESP 18; TEMP 35.5; O2SAT 97
[2023-04-28 07:50] VITALS: BP 109/62; PULSE 93; RESP 16; TEMP 37.1; O2SAT 97
[2023-04-28] MEDS: DOCUSATE SODIUM 100 MG CAPSULE PO ×2 (08:09→17:32)
[2023-04-28] MEDS: LORATADINE 10 MG TABLET PO (08:09)
[2023-04-28] MEDS: MULTIVIT/MIN/PREN/FOL AC/IRON TABLET 1 TAB PO (08:10)
--- NOTE | 2023-04-28 11:17 | PM.OBPNVD ---
OB - PN: Subj Subjective Date/time seen: 04/28/23 11:17 Narrative: POD#1 Edita reports doing well today. Her bleeding is doing ok. Her pain is present; but doing better with the PO meds. She has tolerated regular diet. Graff is still in place; has sat up in the chair. No gas yet. She denies any issues with her incision. She is breast feeding. BPs in normal range; no PEC symptoms. OB - PN: Obj Data Labs 04/28/23 04:24 04/26/23 19:07 Labs: Laboratory Results - last 24 hr 04/28/23 04:24 WBC 17.4 H RBC 3.61 L Hgb 10.9 L Hct 32.9 L MCV 91.1 MCH 30.2 MCHC 33.1 RDW 14.2 Plt Count 169 MPV 11.4 H Immature Gran % (Auto) 0.5 Neut % (Auto) 79.1 H Lymph % (Auto) 9.6 L [place] % (Auto) 10.4 H Eos % (Auto) 0.1 Baso % (Auto) 0.3 Lymph # (Auto) 1.68 [place] # (Auto) 1.8 H Eos # (Auto) 0.0 Baso # (Auto) 0.1 Abs Immat Gran (auto) 0.08 H Absolute Neuts (auto) 13.8 H Absolute Nucleated RBC 0.0 Nucleated RBC % 0.0 OB - PN A/P Assessment and Plan (1) S/P section: Code(s): Z98.891 - History of uterine scar from previous surgery Status: Acute (2) Arrested active phase of labor: Code(s): O62.1 - Secondary uterine inertia Status: Acute (3) Gestational hypertension: Qualifiers: Trimester: third trimester Qualified Code(s): O13.3 - Gestational [-induced] hypertension without significant proteinuria, third trimester Code(s): O13.9 - Gestational [-induced] hypertension without significant proteinuria, unspecified trimester Status: Acute Plan day: 1 Plan: routine care Time Spent With Patient Time: Total time spent is greater than 50% in coordination of care (as documented) at patient's floor/unit and/or counseling patient: Review of Systems Constitutional: Constitutional: Denies chills, Denies fever(s) and Denies headache(s) Eyes: Eyes: Denies change in vision ENT: Denies dizziness and Denies headache(s) Cardiovascular: Cardiovascular: Denies chest pain, Denies palpitations and Denies dyspnea Respiratory: Respiratory: Denies cough and Denies dyspnea Gastrointestinal: Gastrointestinal: Denies nausea and Denies vomiting Genitourinary: Comments: normal bleeding Neurologic: Denies dizziness and Denies headache(s) Endocrine: Endocrine: Denies palpitations Exam Const: General: cooperative, comfortable, no acute distress and obese Orientation/consciousness: patient oriented x3 Resp: Effort & Inspection: normal respiratory effort Auscultation: clear to auscultation bilaterally Cardio: Rate: regular rate GI: Inspection: non-distended and incision (covered with clean dressing) GI Palp: Yes abdominal tenderness (appropriate) and Yes Soft to palpation Auscultation: normal bowel sounds : Other: fundus firm Skin: General skin exam: normal color Neuro: General: patient oriented x3 Extrem: General: normal to inspection Psych: Appearance: grossly normal Affect: normal affect Attitude: cooperative
[2023-04-28 11:52] VITALS: BP 121/65; PULSE 97; RESP 16; TEMP 36.5; O2SAT 99
[2023-04-28] MEDS: DEXTROSE 5%/0.45% SOD CHL 1,000 ML 125 ML IV CONT (13:10)
[2023-04-28 14:30] LABS: Rapid Plasma Reagin Non-Reactive (NonReactive)
[2023-04-28] MEDS: HYDROcodone/acetaminophen (*CRX) 10-325 MG TABLET 1 TAB PO ×3 (14:31→23:41)
[2023-04-28] MEDS: LIDOCAINE 5% PATCH 1 PATCH TRANSDERM (14:33)
--- NOTE | 2023-04-28 14:57 | WPDANLDPN2 ---
Anes-Prog Note L&D Date/Time: 04/28/23 14:57 Comfortable throughout: section Neuraxial method: epidural Epidural/Spinal procedure site: clean & non-tender Neuro status: Neuro function grossly intact. Cardiovascular status: normal Respiratory status: normal Airway patency: baseline Mental status: baseline Post-Op hydration status: normal Vital Signs: Last Vital Signs Temp 97.7 F 04/28/23 11:52 Pulse 97 04/28/23 11:52 Resp 16 04/28/23 11:52 BP 121/65 04/28/23 11:52 Pulse Ox 99 04/28/23 11:52 O2 Del Method Room Air 04/28/23 08:15 Pain score (VAS): 0/10 I/O: Intake & Output 04/27/23 04/28/23 04/28/23 23:59 07:59 15:59 Intake Total 1000 600 Output Total 925 875 125 Balance 75 -275 -125 Post-procedural complaints: none Patient feedback: Patient satisfied with anesthetic care.
--- NOTE | 2023-04-28 14:58 | WPDANLDNPN2 ---
Anes-Prog Note L&D-Neuraxial Date/Time: 04/28/23 14:58 Neuraxial medications: epidural PF morphine Opiod-related complaints: none Patient feedback: Patient satisfied with post-operative pain management.
--- NOTE | 2023-04-28 15:54 | PC.NURSE ---
1400 Introductions were made, then consulted with patient to assess needs related to . Mother led the conversation with her?plans to feed?her and the?experience so far. Encouraged understanding of the benefits of skin to skin (demonstrating unwrapping infant and placing upright on her chest), stimulating with massage touch, changing positions to encourage wakefulness, how to watch for early feeding cues, responsive feeding, feeding on demand (aiming for 8-12 times in 24 hours, about every 2-3 hours), milk production, building/maintaining a milk supply, duration of feeding, signs of adequate intake/output and how to record on the feeding sheet. Mother works well with her with encouragement and education. Reviewed positioning and ear, shoulder, hip alignment, supporting the breast to facilitate a deep latch, asymmetrical latch (off-center), leading with the chin with a big, open, wide gape and body close to mother. Infant latched optimally to the both breasts in football/cross cradle positions. Education given to the mother of how to visualize the suckling (with good rocking jaw motion), swallows (dropping of the lower jaw) and how to listen for drinking at the breast (the ka sound). was able to maintain latch without pain to mother protecting the nipple with optimal positioning and latching. Reviewed comfort measures of healing with a warm, wet washcloth to rinse breast, then leave open to air-dry, good handwashing when or touching the breast/nipples to prevent infection. Mother voiced understanding of skin to skin, stimulating with massage touch, responsive feedings, hand expressed colostrum, talking to infant to encourage if it has been 2 -2.5 hours since the start of the last , to call if does not latch, or if there is discomfort with . Resources used for education were facilitated with the mom and baby guide. Inpatient resources provided with business card, feeding sheet, name written on the communication board, and the mom/baby guide. Parents voiced understanding of information, demonstrated learning and will call if there is a request for assistance. Reported to the Primary RN.
[2023-04-28 16:15] VITALS: BP 117/72; PULSE 94; RESP 16; TEMP 36.7; O2SAT 98
[2023-04-28] MEDS: SIMETHICONE 80 MG TAB.CHEW PO (17:31)
[2023-04-28] MEDS: IBUPROFEN 600 MG TABLET PO ×2 (17:32→23:41)
[2023-04-28 19:00] VITALS: BP 119/72; PULSE 77; RESP 18; TEMP 36.4; O2SAT 96
[2023-04-29] MEDS: SIMETHICONE 80 MG TAB.CHEW PO (07:17)
--- NOTE | 2023-04-29 07:17 | PM.OBPNVD ---
OB - PN: Subj Subjective Date/time seen: 04/29/23 07:17 Narrative: POD#2 Edita reports doing well today. Her bleeding is light. Her pain is a little worse today; but still controlled with PO meds. She is tolerating regular diet, voiding, passing gas, and ambulating without issues. She denies any issues with her incision. She is breast feeding. BPs have been normal since delivery. OB - PN: Obj Data Labs 04/28/23 04:24 04/26/23 19:07 Labs: Laboratory Results - last 24 hr 04/26/23 17:02 RPR Non-reactive OB - PN A/P Assessment and Plan (1) S/P section: Code(s): Z98.891 - History of uterine scar from previous surgery Status: Acute (2) Arrested active phase of labor: Code(s): O62.1 - Secondary uterine inertia Status: Acute Plan day: 2 Plan: routine care and discharge home (tomorrow) Comments: - Pelvic rest; take meds as prescribed - Incision care/no heavy lifting - ER return precautions: fever, n/v/abd pain, bleeding, HTN Time Spent With Patient Time: Total time spent is greater than 50% in coordination of care (as documented) at patient's floor/unit and/or counseling patient: Review of Systems Constitutional: Constitutional: Denies chills, Denies fever(s) and Denies headache(s) Eyes: Eyes: Denies change in vision ENT: Denies dizziness and Denies headache(s) Cardiovascular: Cardiovascular: Denies chest pain, Denies palpitations and Denies dyspnea Respiratory: Respiratory: Denies cough and Denies dyspnea Gastrointestinal: Gastrointestinal: Denies nausea and Denies vomiting Genitourinary: Comments: normal bleeding Neurologic: Denies dizziness and Denies headache(s) Endocrine: Endocrine: Denies palpitations Exam Const: General: cooperative, comfortable, no acute distress and obese Orientation/consciousness: patient oriented x3 Resp: Effort & Inspection: normal respiratory effort Auscultation: clear to auscultation bilaterally Cardio: Rate: regular rate GI: Inspection: non-distended and incision (covered with clean dressing) GI Palp: Yes abdominal tenderness (appropriate) and Yes Soft to palpation Auscultation: normal bowel sounds : Other: fundus firm Skin: General skin exam: normal color Neuro: General: patient oriented x3 Extrem: General: normal to inspection Psych: Appearance: grossly normal Affect: normal affect Attitude: cooperative
[2023-04-29] MEDS: LORATADINE 10 MG TABLET PO (07:18)
[2023-04-29] MEDS: MULTIVIT/MIN/PREN/FOL AC/IRON TABLET 1 TAB PO (07:18)
[2023-04-29] MEDS: HYDROcodone/acetaminophen (*CRX) 10-325 MG TABLET 1 TAB PO ×3 (07:18→16:37)
[2023-04-29] MEDS: DOCUSATE SODIUM 100 MG CAPSULE PO ×2 (07:18→16:37)
[2023-04-29] MEDS: IBUPROFEN 600 MG TABLET PO ×3 (07:18→21:05)
[2023-04-29 08:05] VITALS: BP 123/70; PULSE 92; RESP 18; TEMP 36.7; O2SAT 100
[2023-04-29] MEDS: HYDROcodone/acetaminophen (*CRX) 5-325 MG TABLET 1 TAB PO ×2 (10:28→21:05)
[2023-04-29 19:00] VITALS: BP 122/67; PULSE 101; RESP 18; TEMP 36.7; O2SAT 100
[2023-04-29] MEDS: LIDOCAINE 5% PATCH 1 PATCH TRANSDERM (19:00)
[2023-04-29] MEDS: diphenhydrAMINE HCl CAP 25 MG CAPSULE (21:05)
[2023-04-30] MEDS: IBUPROFEN 600 MG TABLET PO ×2 (04:50→10:25)
--- NOTE | 2023-04-30 07:10 | PM.OBDSVD ---
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.1 - Secondary uterine inertia Status: Acute (3) Gestational hypertension: Qualifiers: Trimester: third trimester Qualified Code(s): O13.3 - Gestational [-induced] hypertension without significant proteinuria, third trimester Code(s): O13.9 - Gestational [-induced] hypertension without significant proteinuria, unspecified trimester Status: Acute OB - DS: Summary OB Procedures : Ultrasound OB Procedures Intrapartum: low cervical, transverse OB Procedures: : None Peripartum Data Delivery Method: Section Procedures: Procedures Operation Date: 04/27/23 20:15 Actual Procedure Side Surgeon p Section Not Applicable Jerri Samson MD complications: none 1: Gender: Female Disposition of : home Status at Discharge Functional status at discharge: independent ambulation Overall status at discharge: patient is back to baseline Time Spent with Patient Time attestation: Total time spent providing and/or coordinating discharge services: Exam Const: General: cooperative, comfortable, no acute distress and obese Orientation/consciousness: patient oriented x3 Resp: Effort & Inspection: normal respiratory effort Auscultation: clear to auscultation bilaterally Cardio: Rate: regular rate GI: Inspection: non-distended and incision (covered with clean dressing) GI Palp: No abdominal tenderness and Yes Soft to palpation Auscultation: normal bowel sounds : Other: fundus firm Skin: General skin exam: normal color Neuro: General: patient oriented x3 Extrem: General: normal to inspection Psych: Appearance: grossly normal Affect: normal affect Attitude: cooperative DS: Data Data Completed and Pending Pending studies at discharge: Pending at discharge 04/28/23 10:55 Surgical [PTH] Routine Discharge Plan Discharge Attending physician on discharge: Jerri Samson Discharging Clinician: Jerri Samson Anticipated Discharge Date/Time: 04/30/23 10:00 Patient Disposition: Home, Self-Care Activity: may shower, may drive after 2 weeks and pelvic rest Diet: regular Discharge Instructions: Remove dressing over your incision on 05/03/23 Patient Instructions: (DC) Stand Alone Forms: General Discharge Information Follow-up/Referrals: Jerri Samson MD [Physician] - 4 Weeks Discharge Medications: New hydrocodone-acetaminophen 5-325 mg Tablet 1 tablet PO Q3H PRN (Reason: Moderate Pain (4-6)) Qty: 24 0RF docusate sodium 100 mg Capsule 100 mg PO BID Qty: 120 0RF ibuprofen 600 mg Tablet 600 mg PO Q6H PRN (Reason: Cramping) Qty: 40 0RF acetaminophen 500 mg tablet 1,000 mg PO TID Qty: 60 0RF Continued [id number] oil 400 mcg-35 mg -25 mg-5 mg tablet,chewable 1 tablet PO DAILY cetirizine [Zyrtec] 10 mg Tablet 10 mg PO DAILY Discontinued aspirin 81 mg tablet,delayed release (DR/EC) 81 mg PO DAILY ondansetron 4 mg tablet,disintegrating 4 mg PO Q6H PRN (Reason: nausea and vomiting) Qty: 30 0RF Date of admission: 04/26/23 16:46 Primary Care Provider: UNKNOWN,DOCTOR Admitting Provider: Jerri Samson Attending physician on admission: Jerri Samson Condition: Stable
[2023-04-30] MEDS: HYDROcodone/acetaminophen (*CRX) 5-325 MG TABLET 1 TAB PO ×2 (07:12→10:25)
[2023-04-30 08:15] VITALS: BP 124/77; PULSE 88; RESP 16; TEMP 36.6; O2SAT 98
[2023-04-30] MEDS: LORATADINE 10 MG TABLET PO (08:26)
[2023-04-30] MEDS: MULTIVIT/MIN/PREN/FOL AC/IRON TABLET 1 TAB PO (08:26)
[2023-04-30] MEDS: DOCUSATE SODIUM 100 MG CAPSULE PO (08:26)
--- NOTE | 2023-04-30 10:05 | PC.NURSE ---
Patient viewed the discharge video Mother & Baby Care, The First Two Weeks . Patient was given the opportunity and encouraged to ask questions. Patient verbalized understanding of information shared and has been given the mother/baby guide for home reference.
[2023-05-02 11:12] VITALS: BP 115/72; PULSE 86; RESP 18; TEMP 36.6; O2SAT 100
== END 2023-04-30 11:31 | disposition home or self-care (01) | DRG 788 ==
LOC: ANHLDR 16:50 → ANHOB2 04-28 00:22
PROVIDERS: Student in an Organized Health Care Education/Training Program; Admitting Provider Obstetrics & Gynecology; Visit Provider Obstetrics & Gynecology
PROC: 10D00Z1 Extraction of Products of Conception, Low, Open Approach (ICD-10-PCS; CPT 59514; principal; 2023-04-27 20:15)
DX: O62.0 Primary inadequate contractions (principal); O99.214 Obesity complicating childbirth; O13.4 Gestational [pregnancy-induced] hypertension without significant proteinuria, complicating childbirth; E66.01 Morbid (severe) obesity due to excess calories; Z3A.39 39 weeks gestation of pregnancy; Z37.0 Single live birth
CPT/HCPCS: 36415; 80053; 82570; 84156; 84550; 85025; 86592; 86850; 86900; 86901; 88307; A9270; J0456; J0690; J1885; J2274; J2405; J2590; J2795; J3010; J7120

== ENCOUNTER 2023-05-16 07:39 | Observation (INO) | payer BC, SELFPAY ==
[2023-05-16] VITALS (7 sets, daily range): BP systolic 108–120; BP diastolic 60–78; PULSE 61–72; RESP 12–18; TEMP 36.4–36.7; O2SAT 96–100; BMI 41.4
--- NOTE | ~2023-05-16 | US_ITS ---
EXAMINATION: US abdomen limited DATE: 05/16/2023 10:14 INDICATION: Right upper quadrant abdominal pain. TECHNIQUE: Multiple grayscale and Doppler ultrasound images of the abdomen were obtained. COMPARISON: None FINDINGS: The visualized portions of the head and body of the pancreas are normal. The liver is teetee l without focal lesion. There is normal flow in main portal vein. The gallbladder is normal in size a nd contains gallstones. Gallbladder wall thickening is noted. No sonographic Cortes sign. The common duct is normal and measures 3 mm. Right kidney is normal. IMPRESSION: 1. Cholelithiasis. Gallbladder wall thickening may be secondary to acute or chronic cholecystitis or interstitial edema. Reviewed, dictated and finalized at location A. [facility] IMPRESSION: 1. Cholelithiasis. Gallbladder wall thickening may be secondary to acute or chr onic cholecystitis or interstitial edema.
[2023-05-16 08:20] LABS: Basophils Absolute Auto 0.1 K/mm3 (0.0-0.1); Basophils Percent Auto 0.8 % (0.2-1.2); Eosinophils Absolute Auto 0.4 K/mm3 (0-0.3); Eosinophils Percent Auto 6.1 % (0-4.4); Hematocrit 42.8 % (37.0-47.0); Hemoglobin 13.4 g/dL (12.0-15.0); Immature Granulocyte Absolute 0.01 K/mm3 (0.00-0.031); Immature Granulocyte Percent A 0.2 % (0-0.5); Lymphocytes Absolute Auto 1.38 K/mm3 (0.9-3.2); Lymphocytes Percent Auto 22.6 % (18.3-44.2); Mean Corpuscular HGB Conc 31.3 g/dl (32-36); Mean Corpuscular Hemoglobin 28.8 pg (26-34); Mean Platelet Volume 10.6 fl (7.4-10.4); Monocytes Absolute Auto 0.6 K/mm3 (0.1-0.6); Neutrophils Absolute Auto 3.7 K/mm3 (1.3-6.7); Neutrophils Percent Auto 61.3 % (45.5-73.1); Platelet Count Result 258 k/mm3 (150-375); Red Blood Count 4.65 M/mm3 (4.2-5.4); Red Cell Distribution Width 13.1 % (11.5-14.5); White Blood Count 6.1 K/mm3 (4.5-10.0)
[2023-05-16 08:29] LABS: Appearance Urine Cloudy (Clear); Bacteria Urine None Seen /hpf; Bilirubin Urine 2+ (Negative); Blood Urine 2+ (Negative); Color Urine Dark Yellow (Yellow); Glucose Urine UA Negative (Negative); Ketones Urine Negative (Negative); Leukocyte Esterase Ur 1+ LEU/UL (Negative); Nitrate Urine Negative (Negative); Protein Urine Trace mg/dL (Negative); Squamous Epithelial Cell Urine Few /hpf (Few); pH Urine 5.5 (5.0-9.0)
[2023-05-16 08:29] LABS: Alanine Aminotransferase 110 U/L (6-35); Albumin Level 4.1 g/dL (3.5-5.1); Alkaline Phosphatase 225 U/L (38-126); Anion Gap 8 mmol/L (8-16); Aspartate Amino Transferase 236 U/L (14-36); Bilirubin,Total 1.5 mg/dL (0.2-1.3); Blood Urea Nitrogen 14 mg/dL (7-17); Calcium 9.2 mg/dL (8.4-10.2); Carbon Dioxide 24 mmol/L (22-30); Chloride 108 mmol/L (98-107); Estimated CRCL calculation 115 ml/min; Estimated Glomerular Filt Rate > 60; Glucose 81 mg/dL (65-110); Lipase 204 U/L (23-300); Potassium 3.9 mmol/L (3.4-5.0); Sodium 140 mmol/L (137-145)
--- NOTE | 2023-05-16 08:30 | ED.ABDPAIN ---
HPI - Abdominal Pain General Chief Complaint: Abdominal Pain Stated Complaint: right flank pain, C section 2 weeks ago Time Seen by Provider: 05/16/23 07:43 History of Present Illness HPI narrative: 22-year-old female presenting to the emergency department for evaluation of right upper quadrant pain. Patient recently had a approximately 2 weeks ago. Patient denies any worsening lower abdominal pain but states that after dinner she had onset of right upper quadrant pain. Patient has no prior history of gallbladder disease. Patient denies any issues of the gallbladder during . Related Data Home Medications Medication Instructions Recorded Confirmed cetirizine 10 mg tablet (Zyrtec) 10 mg PO DAILY 03/27/23 05/16/23 acetaminophen 500 mg tablet 1,000 mg PO TID PRN Mild Pain 05/16/23 05/16/23 (Scale Score 1-4) vitamin no.167-folic acid 1 tablet PO DAILY 05/16/23 05/16/23 400 mcg-dha 25 mg chewable tablet (One-A-Day ) Allergies Allergy/AdvReac Type Severity Reaction Status Date / Time nut - unspecified Allergy Severe Swelling Verified 04/26/23 17:06 of Lip/Tongue/Throat peanut Allergy Severe Swelling Verified 04/26/23 17:06 of Lip/Tongue/Throat flu vaccine Allergy Severe Anaphylaxis Uncoded 04/30/23 07:19 Review of Systems Review of Systems: All systems reviewed & are unremarkable except as noted in HPI and below PMFSH Past Medical History Medical History (Updated 05/16/23 @ 10:48 by Josué Pittman MD) Morbid obesity Multiple food allergies Suppression of menses Surgical History Surgical History Hx of oral surgery as child Family History Family History (Updated 05/16/23 @ 15:24 by Carmela Garcia RN) Grandparent Diabetes mellitus paternal grandmother H/O ovarian cancer maternal grandmother Cerebrovascular accident paternal grandfather Sibling Asthma brother Other Bile duct cancer paternal aunt Social History Social History Smoking status: Never smoker Alcohol intake: current Drinks per week: 1 Alcohol use details: 4 per month Substance use: never Substance use type: does not use Do You Feel Safe in your Home?: Yes Lack of Transportation: No Lack of Food: Never True Current Housing: I Have Housing Concerned About Future Housing: No Difficulty Paying Gas/Electric Bills: No Difficulty Paying for Meds: No Currently Unemployed: No Education: Bachelor's Degree Difficulty w/ Childcare or Family Care: No Living arrangements: other Additional living arrangements comments: Engaged Occupation/Education: unemployed Gender identity (if verbalized by the patient): Female Sexual Orientation (if Verbalized by the Patient): Straight or Heterosexual Spiritual care concerns: No Exam Narrative: APPEARANCE: Well appearing, no pain, no distress, well-nourished. HEAD: normocephalic, atraumatic. EYES: PERRLA/EOMI, conjunctivae clear. NOSE: Normal no drainage NECK: Supple. No adenopathy, no masses. RESPIRATORY: Airway patent, respirations nonlabored. Clear to auscultation bilaterally, no rales, rhonchi, wheezing. CARDIOVASCULAR: Regular rate and rhythm without murmurs rubs or gallops. ABDOMINAL: Mild tenderness to lower abdomen with palpation that is consistent with a recent . No evidence of peritonitis. Mild epigastric tenderness and more significant right upper quadrant tenderness to palpation. MUSCULOSKELETAL: Moves all extremities. Strength/ROM intact, No edema, No calf tenderness. NEURO: Alert. Cranial nerves II through XII intact. Good gait. Good coordination SKIN: Well-appearing 2-week-old incision PSYCHIATRIC: Normal affect/mood. Course Course Emergency Course: 22-year-old female presents emergency department for nancy
[2023-05-16 08:37] LABS: Add Urine Microscopic? YES; Specific Grav Ur 1.039 (1.001-1.035)
[2023-05-16] MEDS: SODIUM CHLORIDE 0.9% IV 1,000 ML 999 ML IV CONT (08:37)
[2023-05-16] MEDS: ONDANSETRON INJ 4 MG/2 ML VIAL IV PUSH ×2 (08:38→14:30)
[2023-05-16] MEDS: HYDROmorphone HCL INJ (*CRX) 1 MG/ML SYR 0.5 MG IV PUSH ×3 (08:38→21:43)
[2023-05-16] MEDS: metroNIDAZOLE 500 MG/ISO 100ML 500 MG/100 ML BAG 100 MG IVPB ×2 (12:18→21:45)
--- NOTE | 2023-05-16 15:09 | ADMGEN ---
This patient, Edita Jesus, was admitted to Medical Room 249-01. Patient/family oriented to hospital policies and general routines including ID bracelet, bed and alarms, visiting hours, pain management, procedures, bathroom and other care routines, personal items, smoking policy, room service/diet, and visiting hours. Information on how to activate the Rapid Response Team has been discussed. Patient/Family are encouraged to report perceived risks to care and to ask questions if they do not understand what they are told or what they should do.
[2023-05-16] MEDS: ACETAMINOPHEN 325 MG TABLET 650 MG PO (17:28)
[2023-05-17] VITALS (10 sets, daily range): BP systolic 106–128; BP diastolic 54–80; PULSE 60–83; RESP 12–20; TEMP 35.7–36.8; O2SAT 97–100
[2023-05-17] MEDS: metroNIDAZOLE 500 MG/ISO 100ML 500 MG/100 ML BAG 100 MG IVPB (05:05)
[2023-05-17] MEDS: HYDROmorphone HCL INJ (*CRX) 1 MG/ML SYR 0.5 MG IV PUSH ×3 (06:15→20:59)
[2023-05-17] MEDS: ONDANSETRON INJ 4 MG/2 ML VIAL IV PUSH ×2 (06:24→11:55)
[2023-05-17] MEDS: ACETAMINOPHEN 325 MG TABLET 650 MG PO (06:26)
--- NOTE | 2023-05-17 06:39 | WPDANESEPP ---
Anes - Eval Pre Procedure Procedure: Laparoscopic cholecystectomy Date/Time: 05/17/23 06:39 Surgeon: Chris Pre Op Diagnosis: Acute Cholecystitis Patient Data Age: 22 Gender: F Height: 1.63 m Weight: 109.6 kg Last Vital Signs Temp 98.2 F 05/17/23 06:00 Pulse 67 05/17/23 06:00 Resp 18 05/17/23 06:00 BP 128/70 05/17/23 06:00 Pulse Ox 99 05/17/23 06:00 O2 Del Method Room Air 05/16/23 20:00 Allergies Allergy/AdvReac Type Severity Reaction Status Date / Time nut - unspecified Allergy Severe Swelling Verified 04/26/23 17:06 of Lip/Tongue/Throat peanut Allergy Severe Swelling Verified 04/26/23 17:06 of Lip/Tongue/Throat flu vaccine Allergy Severe Anaphylaxis Uncoded 04/30/23 07:19 Home Medications Medication Instructions Recorded Confirmed Type cetirizine 10 mg tablet (Zyrtec) 10 mg PO DAILY 03/27/23 05/16/23 History docusate sodium 100 mg capsule 100 mg PO BID #120 caps 04/29/23 05/16/23 Rx ibuprofen 600 mg tablet 600 mg PO Q6H PRN Cramping #40 tabs 04/29/23 05/16/23 Rx acetaminophen 500 mg tablet 1,000 mg PO TID PRN Mild Pain 05/16/23 05/16/23 History (Scale Score 1-4) vitamin no.167-folic acid 1 tablet PO DAILY 05/16/23 05/16/23 History 400 mcg-dha 25 mg chewable tablet (One-A-Day ) Laboratory Tests 05/16/23 05/16/23 08:10 08:18 WBC 6.1 K/mm3 (4.5-10.0) RBC 4.65 M/mm3 (4.2-5.4) Hgb 13.4 g/dL (12.0-15.0) Hct 42.8 % (37.0-47.0) MCV 92.0 fl (80-100) MCH 28.8 pg (26-34) MCHC 31.3 L g/dl (32-36) RDW 13.1 % (11.5-14.5) Plt Count 258 D k/mm3 (150-375) MPV 10.6 H fl (7.4-10.4) Immature Gran % (Auto) 0.2 % (0-0.5) Neut % (Auto) 61.3 % (45.5-73.1) Lymph % (Auto) 22.6 % (18.3-44.2) [place] % (Auto) 9.0 H % (2.6-8.5) Eos % (Auto) 6.1 H % (0-4.4) Baso % (Auto) 0.8 % (0.2-1.2) Lymph # (Auto) 1.38 K/mm3 (0.9-3.2) [place] # (Auto) 0.6 K/mm3 (0.1-0.6) Eos # (Auto) 0.4 H K/mm3 (0-0.3) Baso # (Auto) 0.1 K/mm3 (0.0-0.1) Abs Immat Gran (auto) 0.01 K/mm3 (0.00-0.031) Absolute Neuts (auto) 3.7 K/mm3 (1.3-6.7) Absolute Nucleated RBC 0.0 K/mm3 (0.0-0.012) Nucleated RBC % 0.0 % (0.0-0.2) Sodium 140 mmol/L (137-145) Potassium 3.9 mmol/L (3.4-5.0) Chloride 108 H mmol/L (98-107) Carbon Dioxide 24 mmol/L (22-30) Anion Gap 8 mmol/L (8-16) BUN 14 D mg/dL (7-17) Creatinine 0.80 mg/dL (0.7-1.0) Estim Creat Clear Calc 115 ml/min Estimated GFR > 60 (59 - ) Glucose 81 mg/dL (65-110) Calcium 9.2 mg/dL (8.4-10.2) Total Bilirubin 1.5 H mg/dL (0.2-1.3) AST 236 H U/L (14-36) ALT 110 H U/L (6-35) Alkaline Phosphatase 225 H U/L (38-126) Total Protein 7.0 g/dL (6.3-8.2) Albumin 4.1 g/dL (3.5-5.1) Lipase 204 U/L (23-300) Urine Color Dark yellow (Yellow) Urine Appearance Cloudy H (Clear) Urine pH 5.5 (5.0-9.0) Ur Specific [place] 1.039 H (1.001-1.035) Urine Protein Trace mg/dL (Negative) Urine Glucose (UA) Negative mg/dL (Negative) Urine Ketones Negative mg/dL (Negative) Ur Blood (Man) 2+ H (Negative) Urine Nitrate Negative (Negative) Urine Bilirubin 2+ H (Negative) Urine Urobilinogen 1.0 mg/dL (<2.0) Leukocyte Esterase Rfl 1+ H GIOVANNI/UL (Negative) Urine RBC 11-20 H /hpf (0-2) Urine WBC 11-20 H /hpf Ur Squamous Epith Cells Few /hpf (Few) Urine Bacteria None seen /hpf Urine Casts 3-5 Patient hx anesthesia problems: none Family hx anesthesia problems: none Results Review: All pre-operative results and documents have been reviewed as part of the pre-op
--- NOTE | 2023-05-17 09:10 | PM.IMHP ---
H&P: HPI History of Present Illness Date/Time: 05/17/23 09:10 Chief Complaint: Acute cholecystitis Narrative: The patient is a 22-year-old female presenting to the emergency department complaining of severe right upper quadrant abdominal pain. Patient reports that she experiences pain after having some cheese curds with dinner. The patient reports the pain progressively worsened and kept her up. Patient reports abdominal bloating, nausea with the pain. The patient denies any previous episodes. Of note, the patient had 2 weeks ago. Workup in the emergency department, including imaging, is significant for acute cholecystitis, cholelithiasis. Review of Systems Review of Systems: All systems reviewed & are unremarkable except as noted in HPI and below PMFSH Past Medical History Medical History Acute cholecystitis Morbid obesity Multiple food allergies Suppression of menses Surgical History Surgical History Hx of oral surgery as child S/P section Family History Family History Grandparent Diabetes mellitus paternal grandmother H/O ovarian cancer maternal grandmother Cerebrovascular accident paternal grandfather Sibling Asthma brother Other Bile duct cancer paternal aunt Social History Social History Smoking status: Never smoker Alcohol intake: current Drinks per week: 1 Alcohol use details: 4 per month Substance use: never Substance use type: does not use Do You Feel Safe in your Home?: Yes Lack of Transportation: No Lack of Food: Never True Current Housing: I Have Housing Concerned About Future Housing: No Difficulty Paying Gas/Electric Bills: No Difficulty Paying for Meds: No Currently Unemployed: No Education: Bachelor's Degree Difficulty w/ Childcare or Family Care: No Living arrangements: other Additional living arrangements comments: Engaged Occupation/Education: unemployed Gender identity (if verbalized by the patient): Female Sexual Orientation (if Verbalized by the Patient): Straight or Heterosexual Spiritual care concerns: No Meds Home Medications and Allergies Home Medications Medication Instructions Recorded Confirmed Type cetirizine 10 mg tablet (Zyrtec) 10 mg PO DAILY 03/27/23 05/16/23 History docusate sodium 100 mg capsule 100 mg PO BID #120 caps 04/29/23 05/16/23 Rx ibuprofen 600 mg tablet 600 mg PO Q6H PRN Cramping #40 tabs 04/29/23 05/16/23 Rx acetaminophen 500 mg tablet 1,000 mg PO TID PRN Mild Pain 05/16/23 05/16/23 History (Scale Score 1-4) vitamin no.167-folic acid 1 tablet PO DAILY 05/16/23 05/16/23 History 400 mcg-dha 25 mg chewable tablet (One-A-Day ) Allergies Allergy/AdvReac Type Severity Reaction Status Date / Time nut - unspecified Allergy Severe Swelling Verified 04/26/23 17:06 of Lip/Tongue/Throat peanut Allergy Severe Swelling Verified 04/26/23 17:06 of Lip/Tongue/Throat flu vaccine Allergy Severe Anaphylaxis Uncoded 04/30/23 07:19 Vital Signs Vital Signs - 24 hr 05/16/23 10:31 05/16/23 12:18 05/16/23 12:31 Temperature Pulse Rate 61 67 70 Respiratory Rate 12 14 18 Blood Pressure 116/78 111/71 116/60 Pulse Oximetry 98 Oxygen Delivery 05/16/23 14:34 05/16/23 15:22 05/16/23 15:52 Temperature 36.4 C Pulse Rate 70 Respiratory Rate 18 Blood Pressure 111/65 109/72 Pulse Oximetry 96 100 Oxygen Delivery Room Air 05/16/23 20:00 05/16/23 21:00 05/17/23 06:00 Temperature 36.4 C 36.8 C Pulse Rate 67 67 Respiratory Rate 18 18 Blood Pressure 108/63 128/70 Pulse Oximetry 100 99 Oxygen Delivery Room Air 05/17/23 08:00 Temperature Pulse Rate Respiratory Rate
--- NOTE | 2023-05-17 09:14 | WPDHPUPDATE1 ---
History and Physical Update Update Date/Time: 05/17/23 09:14 History and Physical has been reviewed, including an updated exam of the patient. There are NO changes in the patient's condition. Risks, benefits, and alternatives have been discussed and questions answered. Patient agrees to proceed with procedure.
--- NOTE | 2023-05-17 09:49 | PC.NURSE ---
To OR per bed, IV saline locked. Report given to pre-op RN.
--- NOTE | 2023-05-17 10:03 | WPDANESEPPF ---
Anes - Initial Pre Proc Eval Procedure: Operation Date: 05/17/23 11:00 Proposed Procedures p Laparoscopic Cholecystectomy - Caprice Perez MD Date/Time: 05/17/23 10:03 Surgeon: Caprice Perez MD Pre Op Diagnosis: Acute Cholecystitis Patient Data Age: 22 Gender: F Height: 1.63 m Weight: 109.6 kg Last Vital Signs Temp 36.8 C 05/17/23 06:00 Pulse 67 05/17/23 06:00 Resp 18 05/17/23 06:00 BP 128/70 05/17/23 06:00 Pulse Ox 99 05/17/23 06:00 O2 Del Method Room Air 05/17/23 08:00 Allergies Allergy/AdvReac Type Severity Reaction Status Date / Time nut - unspecified Allergy Severe Swelling Verified 04/26/23 17:06 of Lip/Tongue/Throat peanut Allergy Severe Swelling Verified 04/26/23 17:06 of Lip/Tongue/Throat flu vaccine Allergy Severe Anaphylaxis Uncoded 04/30/23 07:19 Home Medications Medication Instructions Recorded Confirmed Type cetirizine 10 mg tablet (Zyrtec) 10 mg PO DAILY 03/27/23 05/16/23 History docusate sodium 100 mg capsule 100 mg PO BID #120 caps 04/29/23 05/16/23 Rx ibuprofen 600 mg tablet 600 mg PO Q6H PRN Cramping #40 tabs 04/29/23 05/16/23 Rx acetaminophen 500 mg tablet 1,000 mg PO TID PRN Mild Pain 05/16/23 05/16/23 History (Scale Score 1-4) vitamin no.167-folic acid 1 tablet PO DAILY 05/16/23 05/16/23 History 400 mcg-dha 25 mg chewable tablet (One-A-Day ) Patient hx anesthesia problems: none Family hx anesthesia problems: none Results Review: All pre-operative results and documents have been reviewed as part of the pre-operative evaluation. [facility] Past Medical History Medical History Acute cholecystitis Morbid obesity Multiple food allergies Suppression of menses Surgical History Surgical History Hx of oral surgery as child S/P section Family History Family History Grandparent Diabetes mellitus paternal grandmother H/O ovarian cancer maternal grandmother Cerebrovascular accident paternal grandfather Sibling Asthma brother Other Bile duct cancer paternal aunt Social History Social History Smoking status: Never smoker Alcohol intake: current Drinks per week: 1 Alcohol use details: 4 per month Substance use: never Substance use type: does not use Do You Feel Safe in your Home?: Yes Lack of Transportation: No Lack of Food: Never True Current Housing: I Have Housing Concerned About Future Housing: No Difficulty Paying Gas/Electric Bills: No Difficulty Paying for Meds: No Currently Unemployed: No Education: Bachelor's Degree Difficulty w/ Childcare or Family Care: No Living arrangements: other Additional living arrangements comments: Engaged Occupation/Education: unemployed Gender identity (if verbalized by the patient): Female Sexual Orientation (if Verbalized by the Patient): Straight or Heterosexual Spiritual care concerns: No Anes - Eval Final PreProcedure Day of Procedure 05/17/23 10:03 Patient weight: morbidly obese Heart: regular rate and rhythm Lungs: clear to auscultation Airway: Mallampati scale class III Neurological: alert and oriented Last oral intake: >/= 8 hours ASA classification: III Emergent: yes Anesthetic plan: proceed Anesthesia type and monitoring: general ETT and standard monitoring Results Review: All pre-operative results and documents have been reviewed as part of the pre-operative evaluation. Informed Consent: The patient's anesthetic plan and its attendant risks and benefits were discussed with the patient/family/POA. Questions were solicited and answers provided to the satisfaction of the patient/family/POA.
[2023-05-17] MEDS: BUPIVACAINE/EPINEPHRINE 0.5% 50 ML VIAL 30 ML INFILTRATE (11:01)
--- NOTE | 2023-05-17 11:25 | P.OP_ITS ---
Procedure Note - Detailed Date of Procedure 05/17/23 Pre-op Diagnosis Acute Cholecystitis, cholelithiasis Post-op Diagnosis Same Procedure Performed Laparoscopic cholecystectomy Surgeon Caprice Perez MD Anesthesia General Indications 22-year-old female presenting to the emergency department with acute cholec ystitis, cholelithiasis Findings Acute cholecystitis, cholelithiasis Description of Procedure The patient was taken to the operating room placed in the supine position. After adequate induction of general anesthesia, the patient was prepped and draped in normal sterile fashion. A time-out was then performed to verify the patient's identity as well as the procedure being performed. I then made a 5 mm incision in the infraumbilical region. Through this, a Veress needle was placed into the peritoneal cavity and CO2 gas was then insufflated. After adequate pneumoperitoneum was achieved, the Veress needle was removed and a 5 mm optiview trocar was placed through this incision under direct visualization. I then placed the laparoscope through this trocar site and under direct visualization placed a further 12 mm subxiphoid port as well as 2 additional 5 mm ports in the right upper abdomen. The gallbladder was then identified and was noted to be inflamed, distended, and full of gallstones. I was able to place a grasper at the dome of the gallbladder and this was retracted anterior and cephalad up over the liver. A 2nd retractor was then placed at the infundibulum and retracted laterally, this allowed visualization of the triangle of Calot. I then was able to visualize the cystic duct in its entirety from its proximal insertion into the gallbladder, to its distal junction with the common hepatic/common bile duct junction. At this point, I carefully skeletonized the proximal cystic duct with the [place] dissector. I then clipped and transected the proximal cystic duct. Next I visualized the cystic artery. Again the artery was skeletonized, clipped, and transected. I then used the Bovie cautery to take down the peritoneal attachments of the gallbladder off the liver bed. This was somewhat difficult given the amount of inflammation in the posterior space. Once the gallbladder specimen was completely detached, an endo-pouch was placed through the 12 mm port site. I then placed the gallbladder specimen into the Endo pouch and removed the endo-pouch from the 12 mm port site. The specimen will now be sent to pathology for further review. I then copiously irrigated the right upper quadrant. Hemostasis was noted in the liver bed, the clips were noted to be in good position on both the cystic duct stump and the cystic artery stump. No other pathology was noted in the right upper quadrant. I then moved the laparoscope to the subxiphoid port. No iatrogenic injury or other pathology was noted in the lower abdomen. I then closed the 12 mm trocar site under direct visualization using the Elian cone and 0 Vicryl suture. At this point, the abdomen was desufflated and all ports removed. All port sites were then closed with 4.O Monocryl subcuticular sutures. Dermabond was placed on each incision. The patient tolerated the procedure well, was extubated in the operating room postoperative and will be transferred to the recovery room in stable condition Estimated Blood Loss 5 Urine Output 200 Drains No Packing No Pathology Yes Complications No immediate complications Condition Stable Disposition PACU [facility] Billing Surgery - Charge Forward: Surgery Billing
[2023-05-17] MEDS: LACTATED RINGERS 1,000 ML 30 ML IV CONT (11:32)
[2023-05-17] MEDS: fentaNYL CITRATE INJ (*CRX) 100 MCG/2 ML VIAL 25 MCG IV PUSH ×4 (11:47→12:17)
--- NOTE | 2023-05-17 12:54 | PC.NURSE ---
Returned from OR per bed. Report received from JOSE MANUEL Armstrong.
[2023-05-17] MEDS: HYDROcodone/acetaminophen (*CRX) 5-325 MG TABLET 1 TAB PO (13:24)
[2023-05-18] MEDS: HYDROcodone/acetaminophen (*CRX) 5-325 MG TABLET 1 TAB PO ×3 (00:18→12:27)
[2023-05-18] MEDS: HYDROmorphone HCL INJ (*CRX) 1 MG/ML SYR 0.5 MG IV PUSH (05:06)
[2023-05-18] MEDS: LORATADINE 10 MG TABLET PO (08:38)
[2023-05-18] MEDS: MULTIVIT/MIN/PREN/FOL AC/IRON TABLET 1 TAB PO (08:48)
[2023-05-18] MEDS: IBUPROFEN 600 MG TABLET PO (10:54)
--- NOTE | 2023-05-18 10:54 | PM.DS ---
DS: Admitting Diagnosis Discharge Date 05/18/2023 Admitting Diagnosis Acute cholecystitis DS: Discharge Diagnosis Discharge Diagnosis (1) Acute cholecystitis: Code(s): K81.0 - Acute cholecystitis Status: Acute Assessment and Plan: doing well status post laparoscopic cholecystectomy, home with routine postoperative care and p.o. analgesia, follow-up 2 weeks DS: Summary Hospital Course Reason for hospitalization: acute cholecystitis Hospital Course: The patient is a 22-year-old female presenting to the emergency department complaining of severe upper abdominal pain. Workup in the emergency department, including imaging, was significant for acute cholecystitis. The patient was admitted to the surgical service and started on IV antibiotics. Upon evaluation, it was decided the patient would need urgent cholecystectomy. The patient was taken to the operating room on 05/17 and laparoscopic cholecystectomy was performed. Please see full operative report for details of that procedure. Postoperatively the patient did well and was transferred back to the surgical floor. On postoperative day 1. , the patient reports her pain is well controlled with p.o. analgesia and she is able to tolerate a normal diet. She has been up and ambulating without difficulty. At this time she will be discharged home with instructions for routine postoperative care and p.o. analgesia. She will follow-up with me in 2 weeks. Status at Discharge Functional status at discharge: independent ambulation Overall status at discharge: patient is progressing back to baseline Time Spent with Patient Time attestation: Total time spent providing and/or coordinating discharge services: Exam Const: General: cooperative, comfortable and no acute distress Resp: Auscultation: clear to auscultation bilaterally Cardio: Rate: regular rate Rhythm: regular rhythm GI: Inspection: normal to inspection, distended and incision GI Palp: Yes abdominal tenderness, Yes Soft to palpation, Yes Tenderness to palpation present (GI), No Guarding due to palpation present (GI) and No Rigid due to palpation DS: Data Data Completed and Pending Pending studies at discharge: Pending at discharge 05/17/23 11:07 Surgical [PTH] Routine Labs on day of discharge: Preliminary micro results at discharge 05/16/23 11:52 Blood Culture - Preliminary Blood 05/16/23 11:52 Blood Culture - Preliminary Blood Discharge Plan Discharge Attending physician on discharge: Caprice Perez Consulting providers: Caprice Perez Discharging Clinician: Caprice Perez Anticipated Discharge Date/Time: 05/17/23 16:00 Patient Disposition: Home, Self-Care Activity: may shower and as tolerated Diet: as tolerated Wound Care Instructions: incision open to air Discharge Instructions: DISCHARGE INSTRUCTION SHEET FOR HERNIA, GALLBLADDER AND APPENDIX SURGERIES DR. PEREZ PATIENT TO TAKE HOME 1. May shower in 24 hours, no soaking in bath x 2weeks. 2. Call office for: Wound increasingly painful or bleeding Vomiting Fever of greater than 101 degrees 3. If no bowel movement for three days, take 1 oz. (30 ml) Milk of Magnesia or MiraLax 17g 1 to 2 times daily. 4. No heavy lifting > 10-15 pounds x 6 weeks for hernia repairs and 2 weeks for laparoscopic cholecystectomy or appendectomy. 5. No driving for 3 days or while taking narcotic pain medications. 6. Ice to surgical site for 48 hours (30 min on, then 30 min off). 7. Up walking 10-30 minutes three times per day. 8. Resume previous home medications. 9. Follow-up 10-14 days in office for wound check or as previously scheduled. ([id number]) 10. Oral pain medications prescription to be sent to pharmacy. Take Tylenol 500mg every 6 hours and Ibuprofen 600mg every 6 hours for the first 2 days, then as needed. 11. NUTRITION: Start out b
[2023-05-18 12:35] VITALS: BP 111/64; PULSE 76; RESP 18; TEMP 36.1; O2SAT 99
== END 2023-05-18 12:40 | disposition home or self-care (01) ==
LOC: ANHED 10:48 → ANH3MEDSUR 11:58 → ANH2MED 15:09
PROVIDERS: Admitting Provider Surgery; Emergency Provider Emergency Medicine; Visit Provider Surgery
PROC: 0FT44ZZ Resection of Gallbladder, Percutaneous Endoscopic Approach (ICD-10-PCS; CPT 47562; principal; 2023-05-17 09:30)
DX: K80.10 Calculus of gallbladder with chronic cholecystitis without obstruction (principal); E66.01 Morbid (severe) obesity due to excess calories; Z68.41 Body mass index [BMI] 40.0-44.9, adult; F10.90 Alcohol use, unspecified, uncomplicated; Z79.1 Long term (current) use of non-steroidal anti-inflammatories (NSAID); Z79.899 Other long term (current) drug therapy; Z98.891 History of uterine scar from previous surgery
CPT/HCPCS: 47562; 36415; 76705; 80053; 81001; 81025; 83690; 85025; 87040; 87086; 87088; 88304; 96365; 96366; 96368; 96375; 99285; A9270; G0378; J0696; J1100; J1170; J1836; J2250; J2405; J2704; J2710; J3010; J7030; J7120

== ENCOUNTER 2023-06-24 14:50 | Outpatient (CLI) | payer BC, SELFPAY ==
--- NOTE | ~2023-06-24 | US_ITS ---
EXAMINATION: US breast RT limited HISTORY: Mastitis without abscess TECHNIQUE: Limited right breast ultrasound is performed in the area of clinical concern. FINDINGS: No suspicious cystic or solid mass is identified in the region of the patient's reported ma stitis. There is no evidence of breast abscess. IMPRESSION: No evidence of breast abscess. Continued clinical follow-up is recommended. BI-RADS Category 1: Negative Reviewed, dictated and finalized at location B. DULING MANAGER
== END 2023-06-24 14:51 | disposition home or self-care (01) ==
LOC: ANHIMG 14:52
PROVIDERS: Visit Provider Obstetrics & Gynecology
DX: N61.0 Mastitis without abscess (principal)
CPT/HCPCS: 76642

== ENCOUNTER 2023-08-25 15:17 | Outpatient (CLI) | payer BC, SELFPAY ==
[2023-08-25 18:51] LABS: Basophils Absolute Auto 0.1 K/mm3 (0.0-0.1); Basophils Percent Auto 0.7 % (0.2-1.2); Eosinophils Absolute Auto 0.6 K/mm3 (0-0.3); Hematocrit 39.6 % (37.0-47.0); Hemoglobin 12.8 g/dL (12.0-15.0); Immature Granulocyte Absolute 0.03 K/mm3 (0.00-0.031); Immature Granulocyte Percent A 0.4 % (0-0.5); Lymphocytes Percent Auto 30.4 % (18.3-44.2); Mean Corpuscular HGB Conc 32.3 g/dl (32-36); Mean Corpuscular Hemoglobin 28.6 pg (26-34); Mean Corpuscular Volume 88.6 fl (80-100); Mean Platelet Volume 10.7 fl (7.4-10.4); Monocytes Absolute Auto 0.8 K/mm3 (0.1-0.6); Neutrophils Absolute Auto 4.5 K/mm3 (1.3-6.7); Neutrophils Percent Auto 52.5 % (45.5-73.1); Platelet Count Result 290 k/mm3 (150-375); Red Blood Count 4.47 M/mm3 (4.2-5.4); Red Cell Distribution Width 13.2 % (11.5-14.5); White Blood Count 8.6 K/mm3 (4.5-10.0)
[2023-08-25 19:50] LABS: Free T4 Free Thyroxine 0.69 ng/mL (0.78-2.19); Vitamin D 25 Hydroxy 35.5 ng/mL
[2023-08-25 20:00] LABS: Alanine Aminotransferase 21 U/L (6-35); Albumin Level 4.3 g/dL (3.5-5.1); Alkaline Phosphatase 85 U/L (38-126); Anion Gap 9 mmol/L (4-12); Aspartate Amino Transferase 37 U/L (14-36); Bilirubin,Total 0.3 mg/dL (0.2-1.3); Blood Urea Nitrogen 10 mg/dL (7-17); Calcium 9.3 mg/dL (8.4-10.2); Carbon Dioxide 24 mmol/L (22-30); Chloride 110 mmol/L (98-107); Estimated Glomerular Filt Rate > 60; Glucose 86 mg/dL (65-110); Potassium 3.6 mmol/L (3.4-5.0); Sodium 143 mmol/L (137-145)
[2023-08-25 20:19] LABS: Iron 51 ug/dL (37-170)
[2023-08-25 20:28] LABS: Percent Iron Saturation 18 % (20-50)
[2023-08-25 22:59] LABS: Hemoglobin A1C 4.9 % (<5.7)
[2023-08-29 14:40] LABS: Testosterone Free 1.8 pg/mL (0.1-6.4); Testosterone Total 12 ng/dL (2-45)
== END 2023-08-25 15:18 | disposition home or self-care (01) ==
LOC: ANHGOSHLAB 15:19
PROVIDERS: PCP Family Medicine; Visit Provider Obstetrics & Gynecology
DX: L65.9 Nonscarring hair loss, unspecified (principal); R73.9 Hyperglycemia, unspecified; E55.9 Vitamin D deficiency, unspecified; R53.83 Other fatigue
CPT/HCPCS: 36415; 80053; 82306; 82728; 83036; 83540; 83550; 84402; 84403; 84439; 84443; 85025

== ENCOUNTER 2024-02-04 11:28 | Outpatient (CLI) | payer OTHER, SELFPAY ==
--- NOTE | ~2024-02-04 | XR_ITS ---
Lumbosacral Spine: AP, oblique, and lateral views Clinical History: Pain Findings: The normal lordotic curve is maintained. The vertebral bodies and posterior elements are i ntact. The intervertebral disc spaces are preserved. The sacroiliac joints are normally outlined. Impression: No significant abnormality. Reviewed, dictated and finalized at [facility]. Impression: No significant abnormality.
== END 2024-02-04 11:29 | disposition home or self-care (01) ==
PROVIDERS: PCP Family Medicine; Visit Provider Family Medicine
DX: M54.89 Other dorsalgia (principal)
CPT/HCPCS: 72110

== ENCOUNTER 2024-09-02 09:45 | Emergency (ER) | payer OTHER, SELFPAY ==
--- OUTSIDE RECORDS SUMMARY | 2024-09-02 09:51 | XMS_ITS | Clinical Summary ---
Author Organization [facility] Address [address] [place] [address] Care Team Providers Care Rn Clinical Research Name Role Phone Rickey Nicolas DAMAGE APPRAISER-COMPLETION MANAGER Primary Care Provider Source Comments [facility],non-owned Affiliates and Associated Physician Practices is amultiple site organization consisting of ambulatory clinics and hospital sitesin [place], [place], [place] and [place]. This disclosure is being madepursuant to the Care Everywhere program and may not contain all information available regarding this patient. Last updated 18.[facility] [place] Allergies No known active allergies Medications * Be aware that medications may not be up to date on this document. Alwaysverify current medications with the patient. Loratadine (ALAVERT PO) Take 1 Tab by mouth once daily. Active methylPREDNISol one (MEDROL DOSEPAK) 4 MG tablet Take by mouth as directed. 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 Gender Identity Not on file Sexual Orientation Not on file Last Filed Vital Signs Vital Sign Reading Time Taken Comments Blood Pressure 139/88 02/06/2023 9:27 PM CDT Pulse 83 2014 10:29 PM CDT Temperature 36.7 C (98.1 F) 2014 8:09 PM CDT Respiratory Rate 16 2014 10:29 PM CDT Oxygen Saturation 99% 2014 10:29 PM CDT Inhaled Oxygen Concentration - - Weight 65.8 kg (145 lb) 2014 8:09 PM CDT Height 165.1 cm (5' 5 ) 2014 8:09 PM CDT Body Mass Index 24.13 2014 8:09 PM CDT Plan of Treatment Health Maintenance Due Date Last Done Comments PAP SMEAR 1999 HIV SCREENING 08/19/2014 HPV VACCINE (1 - 3-dose series) 08/19/2014 CHLAMYDIA/GONORRHEA SCREENING 2015 HEPATITIS C SCREENING 08/15/2017 DTAP/TDAP/TD VACCINES (1 - Tdap) 08/19/2018 HEPATITIS B VACCINE (1 of 3 - 19+ 3-dose series) 08/19/2018 COVID-19 VACCINE (2 - 2023-2 5 season) 2024 08/16/2020 DEPRESSION SCREENING 05/18/2024 INFLUENZA VACCINE (Season Ended) 2025 03/05/20 ZOSTER VACCINE (1 of 2) 08/19/2049 HIB VACCINE Aged Out No longer eligi ble based on patient's age to complete this topic MENINGOCOCCAL (Group B) VACC INE SHARED DECISION-MAKING Aged Out No longer eligibl e based on patient's age to complete this topic MENINGOCOCCAL GROUPS A/C/Y/W VACCINE Aged Out No longer eligible b ased on patient's age to complete this topic PNEUMOCOCCAL VACCINE Aged Out No long er eligible based on patient's age to complete this topic Insurance [facility] [place] [address] [facility] BCBS/BLUE [employer] [place] [employer] SELF [place] INSURANCE Member Subscriber Plan / Payer (Ef fective for All Dates) Name:Liang Zheng Member ID:Not on file Relation to Subscriber:Not on file Name:LIANG ZHENG Subscriber ID:Not on file Address: [address] [place] [id number] Payer ID:Not on file Group ID:Not on file Type:Self Pay Address: [place], [place] BCBS/BLUE [place] [facility] [place] S[place]F PAY NO INSURANCE Member Subscriber Plan / Payer (Ef fective for All Dates) Name:Liang Zehng R Member ID:Not on file Relation to Subscriber:Not on file Name:LIANG ZHENG Subscriber ID:Not on file Address: [address] [place] [id number] Payer ID:Not on file Group ID:Not on file Type:Self Pay Address: [place], [place] Care Teams Rn Clinical Research Relationship Specialty Start Date End Date Rickey Nicolas, DAMAGE APPRAISER-COMPLETION MANAGER [facility] [place] [address] PCP - General Nurse Practitioner 08/20/14
[2024-09-02 09:54] VITALS: BP 123/96; PULSE 81; RESP 16; TEMP 36.4; O2SAT 100
--- NOTE | 2024-09-02 09:54 | ED.SKABFB ---
HPI - Skin/Abscess/Foreign Bdy General Chief complaint: Skin/Abscess/Foreign Body Stated complaint: Rash Time Seen by Provider: 09/02/24 09:54 Source: patient, RN notes reviewed and old records reviewed Mode of arrival: ambulatory Limitations: no limitations History of Present Illness HPI narrative: 24 year old female who presents to [facility] care with complaints of rash after taking Bactrim antibiotic which she started on the of this month for a cellulitis. Patient reports that she noted some rash on her arms on Thursday that was only mild and took last dose of medication on Thursday then rash increased. Patient reports she has been taking Benadryl for the itching but makes her too sleepy. Patient states that rash is some better but not resolving picture 2 days ago showing more hive like areas on chest and on arms. Patient reports no difficulty with her breathing or with swallowing. MD complaint: rash Onset (ago): week(s) (one week not resolving) Location: chest (upper), LUE and RUE Severity: moderate Treatments prior to arrival: Benadryl and other (using lotion) Related Data Home Medications ?Medication ?Instructions ?Recorded ?Confirmed ?Last Taken ?Type cetirizine 10 mg tablet (Zyrtec) 10 mg PO DAILY 03/27/23 08/24/24 05/15/23 History Allergies Allergy/AdvReac Type Severity Reaction Status Date / Time Influenza Virus Vaccines Allergy Severe Anaphylaxis Verified 08/24/24 14:48 nut - unspecified Allergy Severe Swelling Verified 08/24/24 14:48 of Lip/Tongue/Throat peanut Allergy Severe Swelling Verified 08/24/24 14:48 of Lip/Tongue/Throat trimethoprim (From Bactrim) Allergy Mild Hives Unverified 08/30/24 09:40 Review of Systems Review of Systems: CONSTITUTIONAL: Denies fever, chills, or sweats. CARDIOVASCULAR: Denies chest pain, palpitations, or edema. RESPIRATORY: Denies cough or dyspnea, denies any difficulty with her breathing or with her swallowing SKIN: Reports rash to her bilateral arms and upper chest which started after taking Bactrim MUSCULOSKELETAL: Denies joint pain or myalgia. NEUROLOGIC: Denies headache, numbness, or weakness. All systems reviewed & are unremarkable except as noted in HPI and below PMFSH Past Medical History Medical History Allergies Acute cholecystitis Morbid obesity Suppression of menses Multiple food allergies Surgical History Surgical History Hx of cholecystectomy S/P section 04/27/2023 Hx of oral surgery as child Family History Family History Grandparent Diabetes mellitus paternal grandmother H/O ovarian cancer maternal grandmother Cerebrovascular accident paternal grandfather Sibling Asthma brother Other Bile duct cancer paternal aunt Social History Social History Smoking status: Never smoker Second hand tobacco smoke exposure: No Alcohol intake: never Substance use: never Substance use type: does not use Do You Feel Safe in your Home?: Yes Lack of Transportation: No Lack of Food: Never True Current Housing: I Have Housing Concerned About Future Housing: No Difficulty Paying Gas/Electric Bills: No Difficulty Paying for Meds: No Currently Unemployed: No Education: Bachelor's Degree Difficulty w/ Childcare or Family Care: No Living arrangements: with family Occupation/Education: unemployed Additional occupation/education comments: House Gender identity (if verbalized by the patient): Female Sexual Orientation (if Verbalized by the Patient): Straight or Heterosexual Spiritual care concerns: No Agree to blood products: Yes Comments At time of signature, agree with nursing past medical, surgical, social and family history. There is no relevant family history pertinent to the presenting complaint Exam Narrative: GENERAL: Well-appearing, well-nourished, and in no acute distress. HEAD: Normocephalic, atraumatic. EYES: PERRLA, conjunctivae clear, and EOMI. ENT: Mucous membranes moist. Oropharynx without edema, erythema or lesions. NECK: Supple. No lymphadenopathy CHEST: Clear to auscultation. No respiratory distress. SAO2 100% on room air HEART: Regular rate and rhythm. SKIN: Warm, dry.? red patches of rash on arms and chest non raised does shirley is itchy NEURO:? Alert and oriented x3. PSYCH: Normal mood and affect Course Course Emergency Course: Patient is aware of diagnosis, understands and agrees to treatment plan.? Anticipatory guidance given.? Patient agrees to follow-up as directed and is aware of reasons to seek care at the emergency department. Portions of this record may have been created with voice recognition software Level of Care: Express Care Visit Vital Signs Vital signs: Vital Signs Temperature 36.4 C L 09/02/24 09:54 Pulse Rate 81 09/02/24 09:54 Respiratory Rate 16 09/02/24 09:54 Blood Pressure 123/96 H 09/02/24 09:54 Pulse Oximetry 100 09/02/24 09:54 Oxygen Delivery Room Air 09/02/24 09:54 Temperature 36.4 C L 09/02/24 09:54 Pulse Rate 81 09/02/24 09:54 Respiratory Rate 16 09/02/24 09:54 Blood Pressure 123/96 H 09/02/24 09:54 Pulse Oximetry 100 09/02/24 09:54 Oxygen Delivery Room Air 09/02/24 09:54 Reviewed MDM - Skin/Abscess/Foreign Bdy MDM Narrative Medical decision making narrative: Does not appear at this time to be erythema multiforme, bullous, SJS, TEN; no evidence at this time to suggest RMSF, endocarditis or Lyme disease; patient looks well, nontoxic and is tolerating oral intake; no neurologic signs or symptoms; no headache, photophobia or neck pain; afebrile; appropriate for initial outpatient treatment; discussed the importance of follow-up, patient agrees; question, viral exanthema, contact dermatitis, allergic dermatitis, eczema, urticaria, [ xx ]. No soft palate or uvula edema, no tongue, lip edema or other mucosal involvement, no respiratory compromise, no stridor, no wheezing, no wheezing, no history of syncope, no hypotension, no nausea, vomiting, or diarrhea.? Instructed patient to go to nearest ER immediately for any worsening symptoms including but not limited to: fever, spreading rash, pain, sore throat, headache, dizziness, chest pain, trouble breathing, or any symptoms concerning to the patient. Differential Diagnosis Differential diagnosis: Likely urticaria, allergic reaction to drug, contact dermatitis and other (reaction to Bactrim) Medical Records Attestation: I reviewed the patient's medical records. Critical Care Time Critical Care Time Critical Care Time: No Discharge Plan Discharge Clinical Impression: Allergic dermatitis Adverse reaction to sulfa antibiotic Qualifiers: Encounter type: initial encounter Qualified Code(s): T37.0X5A - Adverse effect of sulfonamides, initial encounter Patient Disposition: Home Condition: Stable Instructions: Antibiotic Medication Allergy (ED), Dermatitis (ED) Additional Instructions: apply triamcinolone ointment to rash twice daily never apply to face watch for any infection--redness, swelling, drainage Pepcid 20 mg one tab daily for 10 days Continue your daily Zyrtec Prednisone taper take as ordered with food follow up with PCP in 7-10 days for a wound check recheck if develop fever, chills, increasing symptom Go to the ER if your symptoms become worse of if ANY new symptoms develop If your symptoms persist, change or worsen significantly before you can contact your personal physician then please, without delay, go to the emergency department for further evaluation. Follow-up with PCP in 7-10 days or sooner if needed Follow up with PCP soon in regards to your blood pressure which is elevated above threshold for referral. Blood pressure above 120/80 may indicate pre-hypertension. 123/96 Patient Language: Citizen Of [place] Prescriptions: New triamcinolone acetonide 0.1 % ointment 1 applic topical BID Qty: 80 0RF Rx Instructions: Apply to rash twice daily never apply this to the face prednisone 10 mg tablet 10 mg PO DIRECTED Qty: 21 0RF Rx Instructions: see taper instructions 6 tabs day 1, 5 tabs day 2, 4 tabs day 3, 3 tabs day 4, 2 tabs day 5, 2 tab day 6 famotidine [Pepcid] 20 mg tablet 20 mg PO DAILY Qty: 10 0RF No Action cetirizine [Zyrtec] 10 mg Tablet 10 mg PO DAILY Slynd 4 mg (28) tablet 1 tablet PO DAILY Qty: 84 4RF Follow-up/Referrals: Jazmine Mills DO [Primary Care Provider] - Time of Disposition: 10:12 Quality [place] Coma Scale Eyes: Open Verbal: Oriented and Alert Motor: Follows Commands Aliza Coma Total Score: 15
== END 2024-09-02 10:17 | disposition home or self-care (01) ==
PROVIDERS: Emergency Provider Registered Nurse; PCP Family Medicine
DX: L23.9 Allergic contact dermatitis, unspecified cause (principal); T36.8X5A Adverse effect of other systemic antibiotics, initial encounter; E66.01 Morbid (severe) obesity due to excess calories; Z68.41 Body mass index [BMI] 40.0-44.9, adult
CPT/HCPCS: 99213; G0463

== ENCOUNTER 2025-03-15 10:49 | Outpatient (CLI) | payer OTHER, SELFPAY ==
--- OUTSIDE RECORDS SUMMARY | 2025-03-15 12:21 | XMS_ITS | Clinical Summary ---
Author Organization [facility] Address [address] [place] [address] Care Team Providers Care Workforce Staffing Advisor Name Role Phone Rickey Nicolas AERONAUTICAL RESEARCH ENGINEER-HOME ENERGY AUDITOR Primary Care Provider Source Comments [facility],non-owned Affiliates and Associated Physician Practices is amultiple site organization consisting of ambulatory clinics and hospital sitesin [place], [place], [place] and [place]. This disclosure is being madepursuant to the Care Everywhere program and may not contain all information available regarding this patient. 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 Gender Identity Not on file Sexual Orientation [...] 8:09 PM CDT Height 165.1 cm (5' 5) 2014 8:09 PM CDT Body Mass Index 24.13 2014 8:09 PM CDT Plan of Treatment Health Maintenance Due Date Last Done Comments HIV SCREENING 08/19/2014 HPV VACCINE (1 - 3-dose series) 08/19/2014 CHLAMYDIA/GONORRHEA SCREENING 2015 HEPATITIS C SCREENING 08/15/2017 DTAP/TDAP/TD VACCINES (1 - Tdap) 08/19/2018 HEPATITIS B VACCINE (1 of 3 - 19+ 3-dose series) 08/19/2018 PAP SMEAR 08/19/2020 DEPRESSION SCREENING 05/18/2024 COVID-19 VACCINE (2 - 2024-2 6 season) 2025 08/16/2020 INFLUENZA VACCINE (#1) 2025 03/05/2023 ZOSTER VACCINE (1 of 2) 08/19/2049 HIB [...] patient's age to complete this topic Insurance [facility] [place] [address] [address] [facility] BCBS/BLUE [place] BLUE [facility] [place] SELF PAY NO INSURANCE Member Subscriber Plan / Payer (Ef fective for All Dates) Name:Liang Zheng Member ID:Not on file Relation to Subscriber:Not on file Name:LIANG ZHENG Subscriber ID:Not on file Address: [address] [place] [id number] Payer ID:Not on file Group ID:Not on file Type:Self Pay Address: [place], [place] BCBS/BLUE [facility] [place]F PA[place] NO INSURANCE Member Subscriber Plan / Payer (Ef fective for All Dates) Name:Liang Zheng Member ID:Not on file Relation to Subscriber:Not on file Name:LIANG ZHENG Subscriber ID:Not on file Address: [address] [place] [id number] Payer ID:Not on file Group ID:Not on file Type:Self Pay Address: [place], [place] Care Teams Workforce Staffing Advisor Relationship Specialty Start Date End Date Rickey Nicolas, AERONAUTICAL RESEARCH ENGINEER-HOME ENERGY AUDITOR [facility] [place] [address] PCP - General Nurse Practitioner 08/20/14
--- OUTSIDE RECORDS SUMMARY | 2025-03-15 12:21 | XMS_ITS | Clinical Summary ---
Author Organization [facility] Address [address] [place] [id number] Care Team Providers Care Occupational Physician Name Role Phone Rickey Nicolas RESEARCH NUTRITIONIST Primary Care Provider [phone] Allergies Active Allergy Reactions Criticality Noted Date Comments Sulfa Antibiotics Hives 09/13/2024 Medications Cetirizine HCl (ZYRTEC PO) Take Active Active Problems No known active problems Immunizations Immunization Administration Dates Next Due Covid-19 Single Dose Juan 08/16/2020 Family History Medical History Relation Name Comments Asthma Brother Relation Name Status Comments Brother Social History Tobacco Use Types Packs/Day Years Used Date Smoking Tobacco: Never Smokeless Tobacco: Never Tobacco Cessation:Counseling Given: Yes Alcohol Use Standard Drinks/Week Comments Never 0 (1 standard drink = 0.6 oz pur e alcohol) [facility] Utilities Answer Date Recorded In the past 12 months has e [employer], gas, oil, or water [employer] threatened to shut off services in your home? No 09/13/2024 Humiliation, Afraid, Rape, and Kick questionnair e Answer Date Recorded Within the last year, have y ou been afraid of your partner or ex-partner? No 09/13/2024 Within the last year, have y ou been humiliated or emotionally abused in other ways by your partner or ex-partner? No Within the last year, have y ou been kicked, hit, slapped, or otherwise physically hurt by your partner or ex-partner? No 09/13/2024 Within the last year, have y ou been raped or forced to have any kind of sexual activity by your partner or ex-partner? No 09/13/2024 Hunger Vital Sign Answer Date Recorded Within the past 12 months, y ou worried that your food would run out before you got the money to buy more. Often true 09/14/19 25 Within the past 12 months, t he food you bought just didn't last and you didn't have money to get more. Often true 09/13/2024 PRAPARE - Transportation Answer Date Re corded In the past 12 months, has l ack of transportation kept you from medical appointments or from getting medications? No 08/17 In the past 12 months, has l ack of transportation kept you from meetings, work, or from getting things needed for daily living? No 09/13/2024 Housing Stability Vital Sign Answer Gonzales e Recorded In the last 12 months, was t here a time when you were not able to pay the mortgage or rent on time? No 09/13/2024 Number of Times Moved in the Last Year Not on fi le 09/13/2024 At any time in the past 12 m [facility], were you homeless or living in a usp (including now)? No 09/13/2024 Alcohol Use Answer Date Recorded Frequency of Alcohol Consumption Not on file 11/02/2023 Average Number of Drinks Not on file 024 Frequency of Binge Drinking Not on file 10/16 Alcohol Use Status Never 11/02/2023 Average alcohol consumption Not on file 10/16 Comments No Sex and Gender Information Value Date Recorded Sex Assigned at Not on file Legal Sex Female 1:26 PM [employer] Gender Identity Not on file Sexual Orientation Not on file Last Filed Vital Signs Vital Sign Reading Time Taken Comments Blood Pressure 116/76 09/13/2024 4:31 AM CDT Pulse 85 09/13/2024 4:31 AM CDT Temperature 36.7 C (98 F) 09/13/2024 4:31 AM CDT Respiratory Rate 16 09/13/2024 4:31 AM CDT Oxygen Saturation 100% 09/13/2024 4:31 AM CDT Inhaled Oxygen Concentration - - Weight 113.4 kg (250 lb) 09/13/2024 2:56 AM CDT Height 162.6 cm (5' 4) 06/18/2021 9:05 AM POOL PLAYER Body Mass Index 42.91 06/18/2021 9:05 AM POOL PLAYER Plan of Treatment Health Maintenance Due Date Last Done Comments HIV Screening 1999 Hepatitis C Screening ages 1 8 to 79 once 1999 MMR VACCINES (1 of 1 - Stand kaushal series) 08/19/2000 DTaP/Tdap/Td Vaccines (1 - Tdap) 08/19/2006 DEPRESSION SCREENING 2011 Varicella Vaccine (1 of 2 - 13+ 2-dose series) 08/19/2012 HPV VACCINES (1 - 3-dose series) 08/19/2014 BMI Above/Below Normal Parameters 08/19/2017 ADULT TETANUS 08/19/2018 HEPATITIS B VACCINES (1 of 3 - 19+ 3-dose series) 08/19/2018 YEARLY WELLNESS EXAM 06/18/2022 06/18/2021 CERVICAL CANCER SCREENING 06/28/2024 06/28/2021 Influenza Vaccine 12/16/2024 COVID-19 Immunization (2 - 2 025-26 season) 2025 08/16/2020 Zoster Vaccine (Recombinant Vaccine) (1 of 2) 08/19/2049 HEPATITIS A VACCINES Aged Out No long er eligible based on patient's age to complete this topic HIB VACCINES Aged Out No longer eligi ble based on patient's age to complete this topic IPV VACCINES Aged Out No longer eligi ble based on patient's age to complete this topic MENINGOCOCCAL VACCINE Aged Out No dana christine eligible based on patient's age to complete this topic Meningococcal B Vaccine Aged Out No l onger eligible based on patient's age to complete this topic Pneumococcal Vaccine: Peds t o 50 & At-Risk Patients Aged Out No longer eligible b ased on patient's age to complete this topic ROTAVIRUS VACCINES Aged Out No longer eligible based on patient's age to complete this topic Procedures Procedure Name Priority Date/Time Associated Diagnosis Comments CYTOLOGY, THIN PREP PAP Routine 06/28/2021 12:09 PM POOL PLAYER Pap smear for cervical cancer screening from Last 3 Months or Most Recently Relevant to Health Maintenance Results * CYTOLOGY, THIN PREP PAP (06/28/2021 12:09 PM POOL PLAYER) Genital Qi Crowell NP PATHOLOGY/CYTOLOGY ADWOA VERAS Final Result [facility] [address] [place] [address] from Last 3 Months or Most Recently Relevant to Health Maintenance Insurance [employer] [facility] Care Teams Occupational Physician Relationship Specialty Start Date End Date Rickey Nicolas NP PCP - General Nurse Practitioner 2/1/20
[2025-03-15 13:16] LABS: Hematocrit 43.7 % (37.0-47.0); Hemoglobin 14.5 g/dL (12.0-15.0); Immature Granulocyte Percent A 0.5 % (0-0.5); Lymphocytes Absolute Auto 2.48 K/mm3 (0.9-3.2); Mean Corpuscular HGB Conc 33.2 g/dl (32-36); Mean Corpuscular Hemoglobin 28.8 pg (26-34); Mean Corpuscular Volume 86.7 fl (80-100); Nucleated Red Blood Cells Absolute Auto 0.000 K/mm3 (0.0-0.012); Nucleated Red Blood Cells Perc 0.0 % (0.0-0.2); Platelet Count Result 290 k/mm3 (150-375); Red Blood Count 5.04 M/mm3 (4.2-5.4); White Blood Count 10.7 K/mm3 (4.5-10.0)
[2025-03-15 13:35] LABS: Glucose 1 Hour PP 50gm Dose 75 mg/dL
[2025-03-15 13:58] LABS: Syphilis IgG/IgM Antibody Non-Reactive (Nonreactive)
[2025-03-15 14:01] LABS: Hepatitis B Surface Antigen Negative (Negative)
[2025-03-15 14:07] LABS: HIV 1/2 Ab P24 Ag Result Negative (Negative)
[2025-03-15 15:48] LABS: Beta HCG Quantitative 64338.00 mIU/ML
[2025-03-16 07:09] LABS: Cytomegalovirus (CMV) Ab, IgG <0.60 U/mL (0.00-0.59); Varicella-Zoster Ab, IgG Reactive (Non Reactive)
[2025-03-21 13:08] LABS: Parvovirus B19, IgG 1.7 index (0.0-0.8); Parvovirus B19, IgM 0.1 index (0.0-0.8)
== END 2025-03-15 10:50 | disposition home or self-care (01) ==
LOC: ANHLAB 10:51
PROVIDERS: PCP Family Medicine; Visit Provider Obstetrics & Gynecology
DX: N91.2 Amenorrhea, unspecified (principal)
CPT/HCPCS: 36415; 82947; 84702; 85025; 86593; 86644; 86703; 86747; 86762; 86787; 86850; 86900; 86901; 87086; 87340; G0432